=== PATIENT | male | born 1960 | race Caucasian/White ===

== ENCOUNTER 2016-10-31 10:52 | Inpatient (IN) | payer MEDICAID, SELFPAY ==
[2016-10-31] MEDS ORDERED: Sodium Chloride 0.9% 2.5 ML Syringe FLUSH PRN (11:18)
[2016-10-31] MEDS ORDERED: Nitroglycerin 0.4 MG Tab.SL SL PRN (11:18)
[2016-10-31] MEDS ORDERED: Aspirin 81 MG Tab.Chew PO ONE (11:18)
[2016-10-31] MEDS ORDERED: Sodium Chloride 0.9% 10 ML Syringe FLUSH PRN (11:18)
--- NOTE | 2016-10-31 11:44 | CR ---
EXAMINATION: Portable chest radiograph. HISTORY: Shortness of breath. FINDINGS: The trachea is midline. The cardiomediastinal silhouette is within normal limits. Mild bibasilar ate lectasis and/or infiltrate. No pleural effusion or pneumothorax. Osseous structures appear unremarkable. IMPRESSION: 1. Mild bibasilar atelectasis and/or infiltrate.
[2016-10-31] MEDS ORDERED: Levofloxacin/Dextrose 5%-Water 750 MG in Premix Bag 1 BAG IV ONE (13:00)
[2016-10-31] MEDS ORDERED: Bisacodyl 5 MG Tab PO PRN (13:28)
[2016-10-31] MEDS ORDERED: Temazepam 15 MG Cap PO PRN (13:28)
[2016-10-31] MEDS ORDERED: Ondansetron 4 MG Tab.DIS PO PRN (13:28)
--- NOTE | 2016-10-31 13:47 | PCM.HP ---
<Yoandy Godfrey - Last Filed: 10/31/16 13:47> H&P History of Present Illness - General Date of Service: 10/31/16 Admit Problem/Dx: Admission Diagnosis/Problem Admission Diagnosis/Problem Pneumonia Source of Information: Patient, Provider - History of Present Illness Initial Comments - Free Text/Narative: This man presented to the ER today with body aches, cough and fatigue. He was recently started on lozaartin for hypertension. His dose was adjusted because of resultant hypotension. He has chest pain that is central sternal and worse with coughing or moving in certain positions. He is uncertain if he has had a fever. Bilateral Chest Pain Score (Numeric/FACES): 6 - Related Data Allergies/Adverse Reactions: Allergies Allergy/AdvReac Type Severity Reaction Status Date / Time No Known Allergies Allergy Verified 10/31/16 10:56 Home Medications: Home Meds Losartan/Hydrochlorothiazide [Losartan-HCTZ 100-25 MG] 1 each PO DAILY 10/31/16 [History] Past Medical History Cardiovascular History: Reports: Hypertension. Denies: Afib, Bypass, CAD, High cholesterol, AR, PTCA, Pulmonary hypertension, Stents Respiratory History: Denies: COPD Gastrointestinal History: Denies: Cirrhosis Genitourinary History: Denies: Chronic renal insuffiency Musculoskeletal History: Denies: Connective tissue disease, Muscular Dystrophy Neurological History: Denies: Alzheimers disease, CVA, Neuropathy, peripheral, Parkinson's Endocrine/Metabolic History: Denies: [place]'s disease, Diabetes, type I, Diabetes, type II, Hyperthyroidism Hematologic History: Denies: Anticoagulation therapy Immunologic History: Denies: AIDS, HIV, SLE, Solid organ transplant Oncologic (Cancer) History: Reports: None - Past Surgical History Other Head Surgeries/Procedures: he denies a history of any major surgeries. Social & Family History - Family History Family Medical History: Noncontributory - Tobacco Use Smoking Status *Q: Former Smoker Used Tobacco, but Quit: Yes Month Tobacco Last Used: 1 Tobacco Use Comment: states he quit 3 weeks ago - Recreational Drug Use Recreational Drug Use: No H&P Review of Systems - Review of Systems: Review Of Systems: See Below General: Reports: fever (he is uncertain if he had a fever..), malaise, weakness , fatigue HEENT: Denies: ear pain Pulmonary: Reports: Shortness of Breath, Cough. Denies: Wheezing Cardiovascular: Reports: chest pain (central sternal pressure worse with coughin ) Gastrointestinal: Denies: Abdominal pain, Black stool, Hematemesis, Hematochezia , Nausea, Stool incontinence, Vomiting Genitourinary: Denies: dysuria Skin: Denies: cyanosis Neurological: Denies: Trouble Speaking Exam - Exam Exam: See Below - Vital Signs Vital Signs: Last Vital Signs Temp 98.9 F 10/31/16 10:57 Pulse 101 H 10/31/16 10:57 Resp 18 10/31/16 10:57 BP 123/85 10/31/16 10:57 Pulse Ox 95 10/31/16 10:57 Weight: 113.398 kg - Exam General: alert, oriented, cooperative HEENT: Conjunctiva clear, EOMI Neck: supple, trachea midline Lungs: Clear to auscultation, Normal respiratory effort Cardiovascular: regular rate, regular rhythm Abdomen: Soft. No: Distention, Tenderness (Male) Exam: Deferred Extremities: No: edema Neurological: cranial nerves intact, normal speech Neuro Extensive - Mental Status: normal mood/affect - Patient Data Lab Results last 24 hrs: Laboratory Results - last 24 hr 10/31/16 10/31/16 10/31/16 Range/Units 11:28 11:28 11:28 WBC 14.61 H (4.0-11.0) K/uL RBC 4.24 L (4.50-5.90) M/uL Hgb 14.0 (13.0-17.0) g/dL Hct 39.0 (38.0-50.0) % MCV 92.0 (80.0-98.0) fL MCH 33.0 H (27.0-32.0) pg MCHC 35.9 (31.0-37.0) g/dL RDW Std Deviation 40.8 (28.0-62.0) fl RDW Coeff of Venecia 12 (11.0-15.0) % Plt Count 289 (150-400) K/uL MPV 10.10 (7.40-12.00) fL Neut % (Auto) 83.4 H (48.0-80.0) % Lymph % (Auto) 9.0 L (16.0-40.0) % [place] % (Auto) 7.3 (0.0-15.0) % Eos % (Auto) 0.1 (0.0-7.0) % Baso % (Auto) 0.2 (0.0-1.5) % Neut # (Auto) 12.2 H (1.4-5.7) K/uL Lymph # (Auto) 1.3 (0.6-2.4) K/uL [place] # (Auto) 1.1 H (0.0-0.8) K/uL Eos # (Auto) 0.0 (0.0-0.7) K/uL Baso # (Auto) 0.0 (0.0-0.1) K/uL Nucleated RBC % 0.0 /100WBC Nucleated RBCs # 0 K/uL D-Dimer, Quantitative 1.17 H (0.0-0.52) mg/LFEU Sodium 130 L (136-146) mmol/L Potassium 3.1 L (3.5-5.1) mmol/L Chloride 94 L (98-110) mmol/L Carbon Dioxide 22 (21-31) mmol/L BUN 21 (6.0-23.0) mg/dL Creatinine 1.6 H (0.6-1.5) mg/dL Est Cr Clr Drug Dosing 57.93 mL/min Estimated GFR (MDRD) 45.3 ml/min Glucose 295 H (60-110) mg/dL Calcium 9.4 (8.8-10.8) mg/dL Total Bilirubin 2.2 H (0.1-1.5) mg/dL AST 38 (5-40) IU/L ALT 62 H (8-54) IU/L Alkaline Phosphatase 101 (40-150) Troponin I (0.0-0.29) NG/ML B-Natriuretic Peptide (<100) PG/ML Total Protein 8.4 H (6.0-8.0) g/dL Albumin 3.4 L (3.5-5.0) g/dL Globulin 5.0 H (2.0-3.5) g/dL Albumin/Globulin Ratio 0.7 L (1.3-2.8) 10/31/16 10/31/16 Range/Units 11:28 11:28 WBC (4.0-11.0) K/uL RBC (4.50-5.90) M/uL Hgb (13.0-17.0) g/dL Hct (38.0-50.0) % MCV (80.0-98.0) fL MCH (27.0-32.0) pg MCHC (31.0-37.0) g/dL RDW Std Deviation (28.0-62.0) fl RDW Coeff of Venecia (11.0-15.0) % Plt Count (150-400) K/uL MPV (7.40-12.00) fL Neut % (Auto) (48.0-80.0) % Lymph % (Auto) (16.0-40.0) % [place] % (Auto) (0.0-15.0) % Eos % (Auto) (0.0-7.0) % Baso % (Auto) (0.0-1.5) % Neut # (Auto) (1.4-5.7) K/uL Lymph # (Auto) (0.6-2.4) K/uL [place] # (Auto) (0.0-0.8) K/uL Eos # (Auto) (0.0-0.7) K/uL Baso # (Auto) (0.0-0.1) K/uL Nucleated RBC % /100WBC Nucleated RBCs # K/uL D-Dimer, Quantitative (0.0-0.52) mg/LFEU Sodium (136-146) mmol/L Potassium (3.5-5.1) mmol/L Chloride (98-110) mmol/L Carbon Dioxide (21-31) mmol/L BUN (6.0-23.0) mg/dL Creatinine (0.6-1.5) mg/dL Est Cr Clr Drug Dosing mL/min Estimated GFR (MDRD) ml/min Glucose (60-110) mg/dL Calcium (8.8-10.8) mg/dL Total Bilirubin (0.1-1.5) mg/dL AST (5-40) IU/L ALT (8-54) IU/L Alkaline Phosphatase (40-150) Troponin I < 0.10 (0.0-0.29) NG/ML B-Natriuretic Peptide 150 H (<100) PG/ML Total Protein (6.0-8.0) g/dL Albumin (3.5-5.0) g/dL Globulin (2.0-3.5) g/dL Albumin/Globulin Ratio (1.3-2.8) Result Diagrams: 10/31/16 11:28 10/31/16 11:28 Wesley Results last 24 hrs: cxr: as per report; bibasilar infiltrates / pneumonia vs atelectasis. *Q Meaningful Use (ADM) - VTE *Q VTE Criteria *Q: - Stroke *Q Stroke Criteria *Q: - AMI *Q AMI Criteria *Q: - Problem List (1) Pneumonia SNOMED Code(s): 208652334 ICD Code: J18.9 - PNEUMONIA, UNSPECIFIED ORGANISM Status: Acute Current Visit: Yes (2) Hypoxia SNOMED Code(s): 947276072, 595605821 ICD Code: R09.02 - HYPOXEMIA Status: Acute Current Visit: Yes (3) Electrolyte abnormality SNOMED Code(s): 056233673 ICD Code: E87.8 - OTH DISORDERS OF ELECTROLYTE AND FLUID BALANCE, NEC Status: Acute Current Visit: Yes (4) Chest pain SNOMED Code(s): 13073341 ICD Code: R07.9 - CHEST PAIN, UNSPECIFIED Status: Acute Current Visit: Yes (5) Hyperglycemia SNOMED Code(s): 05371856 ICD Code: R73.9 - HYPERGLYCEMIA, UNSPECIFIED Status: Acute Current Visit : Yes (6) Elevated serum creatinine SNOMED Code(s): 154038495 ICD Code: R79.89 - OTHER SPECIFIED ABNORMAL FINDINGS OF BLOOD CHEMISTRY Status: Acute Current Visit: Yes Problem List Initiated/Reviewed/Updated: Yes Orders Last 24hrs: Active Orders 24 hr Category Date Time Status Patient Status [ADT] Stat ADT 10/31/16 13:02 Active Blood Glucose Check, Bedside [RC] QIDACANDBED Care 10/31/16 13:28 Ordered Oxygen Therapy [RC] PRN Care 10/31/16 13:28 Ordered Telemetry Monitoring [Cardiac Monitoring] [RC] . Care 10/31/16 13:05 Active DIRECTED VTE/DVT Education [RC] PER UNIT ROUTINE Care 10/31/16 13:28 Ordered Vital Signs [RC] Q4H Care 10/31/16 13:28 Ordered [place] [employer] Diet [DIET] Diet 10/31/16 Lunch Ordered Lung Vent & Perf Quantative [NM] Stat Exams 10/31/16 12:53 Ordered BASIC METABOLIC PANEL,BMP [CHEM] AM Lab 11/01/16 05:11 Ordered BASIC METABOLIC PANEL,BMP [CHEM] AM Lab 11/02/16 05:11 Ordered BASIC METABOLIC PANEL,BMP [CHEM] AM Lab 11/03/16 05:11 Ordered CBC WITH AUTO DIFF [HEME] AM Lab 11/01/16 05:11 Ordered CBC WITH AUTO DIFF [HEME] AM Lab 11/02/16 05:11 Ordered CBC WITH AUTO DIFF [HEME] AM Lab 11/03/16 05:11 Ordered CULTURE BLOOD [BC] Stat Lab 10/31/16 12:56 Received CULTURE BLOOD [BC] Stat Lab 10/31/16 13:17 Received MAGNESIUM [CHEM] AM Lab 11/01/16 05:11 Ordered MAGNESIUM [CHEM] AM Lab 11/02/16 05:11 Ordered MAGNESIUM [CHEM] AM Lab 11/03/16 05:11 Ordered PHOSPHORUS [CHEM] AM Lab 11/01/16 05:11 Ordered TROPONIN I [CHEM] Q7H Lab 10/31/16 22:00 Ordered TROPONIN I [CHEM] Q7H Lab 11/01/16 05:00 Ordered Acetaminophen [Tylenol] Med 10/31/16 13:28 Ordered 650 mg PO Q4H PRN Bisacodyl [Dulcolax] Med 10/31/16 13:28 Ordered 5 mg PO DAILY PRN Levofloxacin/Dextrose 5%-Water [Levaquin in D5W 750 MG/ Med 10/31/16 13:00 Active 150 ML] 750 mg Premix Bag 1 bag IV ONETIME Levofloxacin/Dextrose 5%-Water [Levaquin in D5W 750 MG/ Med 11/01/16 13:30 Ordered 150 ML] 750 mg Premix Bag 1 bag IV Q24H Losartan/Hydrochlorothiazide [Losartan-HCTZ 100-25 MG] Med 11/01/16 09:00 Ordered 1 each PO DAILY Ondansetron [Zofran ODT] Med 10/31/16 13:28 Ordered 4 mg PO Q4H PRN Sodium Chloride 0.9% [Saline Flush] Med 10/31/16 11:18 Active 10 ml FLUSH ASDIRECTED PRN Sodium Chloride 0.9% [Saline Flush] Med 10/31/16 11:18 Active 2.5 ml FLUSH ASDIRECTED PRN Sodium Chloride 0.9% with KCl 20 mEq @ 125 mL/Hr (1000 Med 10/31/16 13:45 Ordered mL) NS + KCl 20mEq/L [Normal Saline with 20 mEq KCl] 1,000 ml IV ASDIRECTED Temazepam [Restoril] Med 10/31/16 13:28 Ordered 15 mg PO BEDTIME PRN Blood Culture x2 Reflex Set [OM.PC] Stat Oth 10/31/16 12:46 Ordered Peripheral IV Insertion Adult [OM.PC] Stat Oth 10/31/16 11:18 Ordered Resuscitation Status Routine Resus Stat 10/31/16 13:28 Ordered Medication Orders Acetaminophen (Tylenol) 650 mg PO Q4H PRN PRN Reason: Pain (Mild 1-3)/fever Bisacodyl (Dulcolax) 5 mg PO DAILY PRN PRN Reason: Constipation Levofloxacin/Dextrose 750 mg/ (Premix) 150 mls @ 100 mls/hr IV ONETIME ONE Stop: 10/31/16 14:29 Last Admin: 10/31/16 13:24 Dose: 100 mls/hr Levofloxacin/Dextrose 750 mg/ (Premix) 150 mls @ 100 mls/hr IV Q24H RICKY Potassium Chloride/Sodium Chloride (Normal Saline With 20 Meq Kcl) 1,000 mls @ 125 mls/hr IV ASDIRECTED RICKY Non-Formulary Medication (Losartan/Hydrochlorothiazide [Losartan-Hctz 100-25 Mg] ) 1 each PO DAILY RICKY Ondansetron HCl (Zofran Odt) 4 mg PO Q4H PRN PRN Reason: nausea, able to take PO Sodium Chloride (Saline Flush) 10 ml FLUSH ASDIRECTED PRN PRN Reason: Keep Vein Open Sodium Chloride (Saline Flush) 2.5 ml FLUSH ASDIRECTED PRN PRN Reason: Keep Vein Open Temazepam (Restoril) 15 mg PO BEDTIME PRN PRN Reason: Sleep Assessment/Plan Comment:: will check a HgA1C 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 Yoandy Godfrey MD <Lori Myers - Last Filed: 10/31/16 14:09> H&P History of Present Illness - General Admit Problem/Dx: Admission Diagnosis/Problem Admission Diagnosis/Problem Pneumonia Exam - Vital Signs Vital Signs: Last Vital Signs Temp 37.2 C 10/31/16 10:57 Pulse 101 H 10/31/16 10:57 Resp 18 10/31/16 10:57 BP 123/85 10/31/16 10:57 Pulse Ox 95 10/31/16 10:57 - Patient Data Lab Results last 24 hrs: Laboratory Results - last 24 hr 10/31/16 10/31/16 10/31/16 Range/Units 11:28 11:28 11:28 WBC 14.61 H (4.0-11.0) K/uL RBC 4.24 L (4.50-5.90) M/uL Hgb 14.0 (13.0-17.0) g/dL Hct 39.0 (38.0-50.0) % MCV 92.0 (80.0-98.0) fL MCH 33.0 H (27.0-32.0) pg MCHC 35.9 (31.0-37.0) g/dL RDW Std Deviation 40.8 (28.0-62.0) fl RDW Coeff of Venecia 12 (11.0-15.0) % Plt Count 289 (150-400) K/uL MPV 10.10 (7.40-12.00) fL Neut % (Auto) 83.4 H (48.0-80.0) % Lymph % (Auto) 9.0 L (16.0-40.0) % [place] % (Auto) 7.3 (0.0-15.0) % Eos % (Auto) 0.1 (0.0-7.0) % Baso % (Auto) 0.2 (0.0-1.5) % Neut # (Auto) 12.2 H (1.4-5.7) K/uL Lymph # (Auto) 1.3 (0.6-2.4) K/uL [place] # (Auto) 1.1 H (0.0-0.8) K/uL Eos # (Auto) 0.0 (0.0-0.7) K/uL Baso # (Auto) 0.0 (0.0-0.1) K/uL Nucleated RBC % 0.0 /100WBC Nucleated RBCs # 0 K/uL D-Dimer, Quantitative 1.17 H (0.0-0.52) mg/LFEU Sodium 130 L (136-146) mmol/L Potassium 3.1 L (3.5-5.1) mmol/L Chloride 94 L (98-110) mmol/L Carbon Dioxide 22 (21-31) mmol/L BUN 21 (6.0-23.0) mg/dL Creatinine 1.6 H (0.6-1.5) mg/dL Est Cr Clr Drug Dosing 57.93 mL/min Estimated GFR (MDRD) 45.3 ml/min Glucose 295 H (60-110) mg/dL Calcium 9.4 (8.8-10.8) mg/dL Total Bilirubin 2.2 H (0.1-1.5) mg/dL AST 38 (5-40) IU/L ALT 62 H (8-54) IU/L Alkaline Phosphatase 101 (40-150) Troponin I (0.0-0.29) NG/ML B-Natriuretic Peptide (<100) PG/ML Total Protein 8.4 H (6.0-8.0) g/dL Albumin 3.4 L (3.5-5.0) g/dL Globulin 5.0 H (2.0-3.5) g/dL Albumin/Globulin Ratio 0.7 L (1.3-2.8) 10/31/16 10/31/16 Range/Units 11:28 11:28 WBC (4.0-11.0) K/uL RBC (4.50-5.90) M/uL Hgb (13.0-17.0) g/dL Hct (38.0-50.0) % MCV (80.0-98.0) fL MCH (27.0-32.0) pg MCHC (31.0-37.0) g/dL RDW Std Deviation (28.0-62.0) fl RDW Coeff of Venecia (11.0-15.0) % Plt Count (150-400) K/uL MPV (7.40-12.00) fL Neut % (Auto) (48.0-80.0) % Lymph % (Auto) (16.0-40.0) % [place] % (Auto) (0.0-15.0) % Eos % (Auto) (0.0-7.0) % Baso % (Auto) (0.0-1.5) % Neut # (Auto) (1.4-5.7) K/uL Lymph # (Auto) (0.6-2.4) K/uL [place] # (Auto) (0.0-0.8) K/uL Eos # (Auto) (0.0-0.7) K/uL Baso # (Auto) (0.0-0.1) K/uL Nucleated RBC % /100WBC Nucleated RBCs # K/uL D-Dimer, Quantitative (0.0-0.52) mg/LFEU Sodium (136-146) mmol/L Potassium (3.5-5.1) mmol/L Chloride (98-110) mmol/L Carbon Dioxide (21-31) mmol/L BUN (6.0-23.0) mg/dL Creatinine (0.6-1.5) mg/dL Est Cr Clr Drug Dosing mL/min Estimated GFR (MDRD) ml/min Glucose (60-110) mg/dL Calcium (8.8-10.8) mg/dL Total Bilirubin (0.1-1.5) mg/dL AST (5-40) IU/L ALT (8-54) IU/L Alkaline Phosphatase (40-150) Troponin I < 0.10 (0.0-0.29) NG/ML B-Natriuretic Peptide 150 H (<100) PG/ML Total Protein (6.0-8.0) g/dL Albumin (3.5-5.0) g/dL Globulin (2.0-3.5) g/dL Albumin/Globulin Ratio (1.3-2.8) Result Diagrams: 10/31/16 11:28 10/31/16 11:28 *Q Meaningful Use (ADM) - VTE *Q VTE Criteria *Q: - Stroke *Q Stroke Criteria *Q: - AMI *Q AMI Criteria *Q: Orders Last 24hrs: Active Orders 24 hr Category Date Time Status Patient Status [ADT] Stat ADT 10/31/16 13:02 Active Blood Glucose Check, Bedside [RC] QIDACANDBED Care 10/31/16 13:28 Active Oxygen Therapy [RC] PRN Care 10/31/16 13:28 Active Telemetry Monitoring [Cardiac Monitoring] [RC] . Care 10/31/16 13:05 Active DIRECTED VTE/DVT Education [RC] PER UNIT ROUTINE Care 10/31/16 13:28 Active Vital Signs [RC] Q4H Care 10/31/16 13:28 Active [place] [employer] Diet [DIET] Diet 10/31/16 Lunch Active Lung Vent & Perf Quantative [NM] Stat Exams 10/31/16 12:53 Ordered BASIC METABOLIC PANEL,BMP [CHEM] AM Lab 11/01/16 05:11 Ordered BASIC METABOLIC PANEL,BMP [CHEM] AM Lab 11/02/16 05:11 Ordered BASIC METABOLIC PANEL,BMP [CHEM] AM Lab 11/03/16 05:11 Ordered CBC WITH AUTO DIFF [HEME] AM Lab 11/01/16 05:11 Ordered CBC WITH AUTO DIFF [HEME] AM Lab 11/02/16 05:11 Ordered CBC WITH AUTO DIFF [HEME] AM Lab 11/03/16 05:11 Ordered CULTURE BLOOD [BC] Stat Lab 10/31/16 12:56 Received CULTURE BLOOD [BC] Stat Lab 10/31/16 13:17 Received GLYCOSYLATED HEMOGLOBIN,HGBA1C [CHEM] AM Lab 11/01/16 05:11 Ordered MAGNESIUM [CHEM] AM Lab 11/01/16 05:11 Ordered MAGNESIUM [CHEM] AM Lab 11/02/16 05:11 Ordered MAGNESIUM [CHEM] AM Lab 11/03/16 05:11 Ordered PHOSPHORUS [CHEM] AM Lab 11/01/16 05:11 Ordered TROPONIN I [CHEM] Q7H Lab 10/31/16 22:00 Ordered TROPONIN I [CHEM] Q7H Lab 11/01/16 05:00 Ordered Acetaminophen [Tylenol] Med 10/31/16 13:28 Active 650 mg PO Q4H PRN Bisacodyl [Dulcolax] Med 10/31/16 13:28 Active 5 mg PO DAILY PRN Hydrochlorothiazide/Losartan [Hyzaar 50-12.5 MG] Med 11/01/16 09:00 Active 2 tab PO DAILY Insulin Aspart [NovoLOG] Med 10/31/16 14:00 Active See Protocol SUBCUT ACBED Levofloxacin/Dextrose 5%-Water [Levaquin in D5W 750 MG/ Med 10/31/16 13:00 Active 150 ML] 750 mg Premix Bag 1 bag IV ONETIME Levofloxacin/Dextrose 5%-Water [Levaquin in D5W 750 MG/ Med 11/01/16 13:30 Active 150 ML] 750 mg Premix Bag 1 bag IV Q24H NS + KCl 20mEq/L [Normal Saline with 20 mEq KCl] 1,000 Med 10/31/16 13:45 Active ml IV ASDIRECTED Ondansetron [Zofran ODT] Med 10/31/16 13:28 Active 4 mg PO Q4H PRN Sodium Chloride 0.9% [Saline Flush] Med 10/31/16 11:18 Active 10 ml FLUSH ASDIRECTED PRN Sodium Chloride 0.9% [Saline Flush] Med 10/31/16 11:18 Active 2.5 ml FLUSH ASDIRECTED PRN Temazepam [Restoril] Med 10/31/16 13:28 Active 15 mg PO BEDTIME PRN Blood Culture x2 Reflex Set [OM.PC] Stat Oth 10/31/16 12:46 Ordered Peripheral IV Insertion Adult [OM.PC] Stat Oth 10/31/16 11:18 Ordered Resuscitation Status Routine Resus Stat 10/31/16 13:28 Ordered Medication Orders Acetaminophen (Tylenol) 650 mg PO Q4H PRN PRN Reason: Pain (Mild 1-3)/fever Bisacodyl (Dulcolax) 5 mg PO DAILY PRN PRN Reason: Constipation HCTZ/Losartan Potassium (Hyzaar 50-12.5 Mg) 2 tab PO DAILY RICKY Levofloxacin/Dextrose 750 mg/ (Premix) 150 mls @ 100 mls/hr IV ONETIME ONE Stop: 10/31/16 14:29 Last Admin: 10/31/16 13:24 Dose: 100 mls/hr Levofloxacin/Dextrose 750 mg/ (Premix) 150 mls @ 100 mls/hr IV Q24H RICKY Potassium Chloride/Sodium Chloride (Normal Saline With 20 Meq Kcl) 1,000 mls @ 125 mls/hr IV ASDIRECTED RICKY Insulin Aspart (Novolog) 0 unit SUBCUT ACBED RICKY PRN Reason: Protocol Ondansetron HCl (Zofran Odt) 4 mg PO Q4H PRN PRN Reason: nausea, able to take PO Sodium Chloride (Saline Flush) 10 ml FLUSH ASDIRECTED PRN PRN Reason: Keep Vein Open Sodium Chloride (Saline Flush) 2.5 ml FLUSH ASDIRECTED PRN PRN Reason: Keep Vein Open Temazepam (Restoril) 15 mg PO BEDTIME PRN PRN Reason: Sleep
[2016-10-31] MEDS: NS + KCl 20mEq/L 1,000 ML IV SCH (15:56)
--- NOTE | 2016-10-31 16:02 | NM ---
EXAMINATION: Ventilation/perfusion study HISTORY: Shortness of breath COMPARISON: Chest radiograph dated 10/31/2016 TECHNIQUE: Multiplanar images were obtained of the chest following the administration of 3.9 mCi of Tech 99M labeled MAA and 42.8 mCi of Tech 99M labeled DTPA. FINDINGS: There is no ventilation/perfusion mismatch identified. No segmental defect. The lung borde rs appear normal. IMPRESSION: Low probability for a pulmonary embolism.
[2016-10-31] MEDS: Insulin Aspart 100 Units/ML 3 ML Pen SUBCUT SCH ×3 (16:53→20:37)
[2016-11-01] MEDS: NS + KCl 20mEq/L 1,000 ML IV SCH ×2 (00:05→16:39)
[2016-11-01] MEDS: Albuterol/Ipratropium 3.0-0.5 MG/3 ML Neb Soln NEB SCH ×5 (00:06→23:39)
[2016-11-01] MEDS: Piperacillin/Tazobactam 3.375 GM in Sodium Chloride 0.9% 50 ML IV SCH ×4 (02:38→20:01)
[2016-11-01] MEDS ORDERED: Vancomycin 2.5 GM in Sodium Chloride 0.9% 500 ML IV ONE (03:00)
[2016-11-01 05:42] LABS: CHLORIDE,CL 99 mmol/L (98-110); SODIUM,NA 133 mmol/L (136-146)
[2016-11-01] MEDS: Acetaminophen 325 MG Tab PO PRN ×3 (07:20→20:25)
[2016-11-01] MEDS: Insulin Aspart 100 Units/ML 3 ML Pen SUBCUT SCH ×4 (08:34→20:23)
[2016-11-01] MEDS ORDERED: Hydrochlorothiazide/Losartan 12.5-50 mg Tab PO SCH (09:00)
[2016-11-01] MEDS: Hydrochlorothiazide/Losartan 12.5-50 mg Tab PO SCH (09:16)
[2016-11-01] MEDS ORDERED: Magnesium Sulfate/Water 2 GM in Premix Bag 1 BAG IV ONE (11:19)
--- NOTE | 2016-11-01 11:26 | PCM.PN ---
- General Info Date of Service: 11/01/16 - Review of Systems Systems Review Comment:: he is feeling improved. duonebs started last night. - Patient Data Vitals - most recent: Last Vital Signs Temp 101.0 F H 11/01/16 07:00 Pulse 101 H 11/01/16 07:00 Resp 28 H 11/01/16 07:00 BP 133/75 11/01/16 07:00 Pulse Ox 90 L 11/01/16 07:00 Weight - most recent: 129.274 kg I&O - last 24 hours: Intake & Output 10/31/16 11/01/16 11/01/16 22:59 06:59 14:59 Intake Total 2504 300 Output Total 975 Balance 1529 300 Lab Results last 24 hrs: Laboratory Results - last 24 hr 10/31/16 10/31/16 10/31/16 Range/Units 16:01 18:03 20:36 WBC (4.0-11.0) K/uL RBC (4.50-5.90) M/uL Hgb (13.0-17.0) g/dL Hct (38.0-50.0) % MCV (80.0-98.0) fL MCH (27.0-32.0) pg MCHC (31.0-37.0) g/dL RDW Std Deviation (28.0-62.0) fl RDW Coeff of Venecia (11.0-15.0) % Plt Count (150-400) K/uL MPV (7.40-12.00) fL Neut % (Auto) (48.0-80.0) % Lymph % (Auto) (16.0-40.0) % Maries % (Auto) (0.0-15.0) % Eos % (Auto) (0.0-7.0) % Baso % (Auto) (0.0-1.5) % Neut # (Auto) (1.4-5.7) K/uL Lymph # (Auto) (0.6-2.4) K/uL Maries # (Auto) (0.0-0.8) K/uL Eos # (Auto) (0.0-0.7) K/uL Baso # (Auto) (0.0-0.1) K/uL Nucleated RBC % /100WBC Nucleated RBCs # K/uL Sodium (136-146) mmol/L Potassium (3.5-5.1) mmol/L Chloride (98-110) mmol/L Carbon Dioxide (21-31) mmol/L BUN (6.0-23.0) mg/dL Creatinine (0.6-1.5) mg/dL Est Cr Clr Drug Dosing mL/min Estimated GFR (MDRD) ml/min Glucose (60-110) mg/dL POC Glucose 158 H 138 H (60-110) mg/dL Hemoglobin A1c (0.0-6.0) % Calcium (8.8-10.8) mg/dL Phosphorus (2.4-4.7) mg/dL Magnesium (1.5-2.3) mEq/L Troponin I < 0.10 (0.0-0.29) NG/ML 11/01/16 11/01/16 11/01/16 Range/Units 00:00 04:30 04:30 WBC 14.53 H (4.0-11.0) K/uL RBC 3.95 L (4.50-5.90) M/uL Hgb 12.9 L (13.0-17.0) g/dL Hct 37.0 L (38.0-50.0) % MCV 93.7 (80.0-98.0) fL MCH 32.7 H (27.0-32.0) pg MCHC 34.9 (31.0-37.0) g/dL RDW Std Deviation 41.9 (28.0-62.0) fl RDW Coeff of Venecia 12 (11.0-15.0) % Plt Count 235 (150-400) K/uL MPV 10.90 (7.40-12.00) fL Neut % (Auto) 81.2 H (48.0-80.0) % Lymph % (Auto) 11.1 L (16.0-40.0) % Maries % (Auto) 7.4 (0.0-15.0) % Eos % (Auto) 0.1 (0.0-7.0) % Baso % (Auto) 0.2 (0.0-1.5) % Neut # (Auto) 11.8 H (1.4-5.7) K/uL Lymph # (Auto) 1.6 (0.6-2.4) K/uL Maries # (Auto) 1.1 H (0.0-0.8) K/uL Eos # (Auto) 0.0 (0.0-0.7) K/uL Baso # (Auto) 0.0 (0.0-0.1) K/uL Nucleated RBC % 0.0 /100WBC Nucleated RBCs # 0 K/uL Sodium 133 L (136-146) mmol/L Potassium 3.6 (3.5-5.1) mmol/L Chloride 99 (98-110) mmol/L Carbon Dioxide 19 L (21-31) mmol/L BUN 16 (6.0-23.0) mg/dL Creatinine 1.1 (0.6-1.5) mg/dL Est Cr Clr Drug Dosing 84.26 mL/min Estimated GFR (MDRD) > 60.0 ml/min Glucose 138 H (60-110) mg/dL POC Glucose (60-110) mg/dL Hemoglobin A1c (0.0-6.0) % Calcium 8.1 L (8.8-10.8) mg/dL Phosphorus 2.8 (2.4-4.7) mg/dL Magnesium 1.4 L (1.5-2.3) mEq/L Troponin I < 0.10 (0.0-0.29) NG/ML 11/01/16 11/01/16 Range/Units 04:30 06:40 WBC (4.0-11.0) K/uL RBC (4.50-5.90) M/uL Hgb (13.0-17.0) g/dL Hct (38.0-50.0) % MCV (80.0-98.0) fL MCH (27.0-32.0) pg MCHC (31.0-37.0) g/dL RDW Std Deviation (28.0-62.0) fl RDW Coeff of Venceia (11.0-15.0) % Plt Count (150-400) K/uL MPV (7.40-12.00) fL Neut % (Auto) (48.0-80.0) % Lymph % (Auto) (16.0-40.0) % Maries % (Auto) (0.0-15.0) % Eos % (Auto) (0.0-7.0) % Baso % (Auto) (0.0-1.5) % Neut # (Auto) (1.4-5.7) K/uL Lymph # (Auto) (0.6-2.4) K/uL Maries # (Auto) (0.0-0.8) K/uL Eos # (Auto) (0.0-0.7) K/uL Baso # (Auto) (0.0-0.1) K/uL Nucleated RBC % /100WBC Nucleated RBCs # K/uL Sodium (136-146) mmol/L Potassium (3.5-5.1) mmol/L Chloride (98-110) mmol/L Carbon Dioxide (21-31) mmol/L BUN (6.0-23.0) mg/dL Creatinine (0.6-1.5) mg/dL Est Cr Clr Drug Dosing mL/min Estimated GFR (MDRD) ml/min Glucose (60-110) mg/dL POC Glucose 154 H (60-110) mg/dL Hemoglobin A1c 10.0 H (0.0-6.0) % Calcium (8.8-10.8) mg/dL Phosphorus (2.4-4.7) mg/dL Magnesium (1.5-2.3) mEq/L Troponin I (0.0-0.29) NG/ML Med Orders - Current: Current Medications Acetaminophen (Tylenol) 650 mg PO Q4H PRN PRN Reason: Pain (Mild 1-3)/fever Last Admin: 11/01/16 07:20 Dose: 650 mg Albuterol/Ipratropium (Duoneb 3.0-0.5 Mg/3 Ml) 3 ml NEB Q6HRRT [facility] Last Admin: 11/01/16 06:29 Dose: 3 ml Bisacodyl (Dulcolax) 5 mg PO DAILY PRN PRN Reason: Constipation HCTZ/Losartan Potassium (Hyzaar 50-12.5 Mg) 1 tab PO DAILY [facility] Last Admin: 11/01/16 09:16 Dose: 1 tab Levofloxacin/Dextrose 750 mg/ (Premix) 150 mls @ 100 mls/hr IV Q24H [facility] Potassium Chloride/Sodium Chloride (Normal Saline With 20 Meq Kcl) 1,000 mls @ 125 mls/hr IV ASDIRECTED [facility] Last Admin: 11/01/16 00:05 Dose: 125 mls/hr Piperacillin Sod/Tazobactam (Sod 3.375 gm/ Sodium Chloride) 50 mls @ 100 mls/ hr IV Q6H [facility] Last Admin: 11/01/16 09:16 Dose: 100 mls/hr Vancomycin HCl 2 gm/ Sodium (Chloride) 500 mls @ 150 mls/hr IV Q12H [facility] Insulin Aspart (Novolog) 0 unit SUBCUT ACBED RICKY PRN Reason: Protocol Last Admin: 11/01/16 08:34 Dose: 1 units Ondansetron HCl (Zofran Odt) 4 mg PO Q4H PRN PRN Reason: nausea, able to take PO Sodium Chloride (Saline Flush) 10 ml FLUSH ASDIRECTED PRN PRN Reason: Keep Vein Open Sodium Chloride (Saline Flush) 2.5 ml FLUSH ASDIRECTED PRN PRN Reason: Keep Vein Open Temazepam (Restoril) 15 mg PO BEDTIME PRN PRN Reason: Sleep Vancomycin HCl (Pharmacy To Dose - Vancomycin) 1 dose .XX ASDIRECTED [facility] Discontinued Medications Aspirin (Aspirin) 324 mg PO ONETIME ONE Stop: 10/31/16 11:19 Last Admin: 10/31/16 11:35 Dose: 324 mg HCTZ/Losartan Potassium (Hyzaar 50-12.5 Mg) 2 tab PO DAILY [facility] Levofloxacin/Dextrose 750 mg/ (Premix) 150 mls @ 100 mls/hr IV ONETIME ONE Stop: 10/31/16 14:29 Last Admin: 10/31/16 13:24 Dose: 100 mls/hr Vancomycin HCl 2 gm/ Sodium (Chloride) 500 mls @ 150 mls/hr IV Q12H [facility] Vancomycin HCl 1 gm/ Sodium (Chloride) 250 mls @ 166 mls/hr IV Q1H [facility] Stop: 11/01/16 05:59 Last Admin: 11/01/16 07:19 Dose: 166 mls/hr Nitroglycerin (Nitrostat) 0.4 mg SL Q5M PRN PRN Reason: Chest Pain Stop: 10/31/16 11:29 - Exam General: alert, oriented, cooperative HEENT: EOMI Lungs: Clear to auscultation, Normal respiratory effort, Other (better tidal volumes than yesterday pm) Cardiovascular: Regular Rate, Regular Rhythm Abdomen: no tenderness - Problem List & Annotations (1) Pneumonia SNOMED Code(s): 064449840 Code(s): J18.9 - PNEUMONIA, UNSPECIFIED ORGANISM Status: Acute Current Visit: Yes (2) Hypoxia SNOMED Code(s): 057876540, 750697018 Code(s): R09.02 - HYPOXEMIA Status: Acute Current Visit: Yes (3) Electrolyte abnormality SNOMED Code(s): 133080317 Code(s): E87.8 - OTH DISORDERS OF ELECTROLYTE AND FLUID BALANCE, NEC Status : Acute Current Visit: Yes (4) Chest pain SNOMED Code(s): 72097158 Code(s): R07.9 - CHEST PAIN, UNSPECIFIED Status: Acute Current Visit: Yes (5) Hyperglycemia SNOMED Code(s): 39775425 Code(s): R73.9 - HYPERGLYCEMIA, UNSPECIFIED Status: Acute Current Visit: Yes (6) Elevated serum creatinine SNOMED Code(s): 521309650 Code(s): R79.89 - OTHER SPECIFIED ABNORMAL FINDINGS OF BLOOD CHEMISTRY Status: Acute Current Visit: Yes (7) Diabetes mellitus SNOMED Code(s): 53425189 Code(s): E11.9 - TYPE 2 DIABETES MELLITUS WITHOUT COMPLICATIONS Status: Acute Current Visit: Yes (8) Hypomagnesemia SNOMED Code(s): 534815587 Code(s): E83.42 - HYPOMAGNESEMIA Status: Acute Current Visit: Yes - Problem List Review Problem List Initiated/Reviewed/Updated: Yes - My Orders Last 24 Hours: My Active Orders 10/31/16 22:56 RT Aerosol Therapy [RC] ASDIRECTED 11/01/16 00:00 Albuterol/Ipratropium [DuoNeb 3.0-0.5 MG/3 ML] 3 ml NEB Q6HRRT 11/01/16 02:00 Piperacillin/Tazobactam [Piperacil-Tazobact] 3.375 gm Sodium Chloride 0.9% [ Normal Saline] 50 ml IV Q6H Vancomycin Pharmacy to Dose [Pharmacy to Dose - Vancomycin] 1 dose .XX ASDIRECTED 11/01/16 09:00 Hydrochlorothiazide/Losartan [Hyzaar 50-12.5 MG] 1 tab PO DAILY 11/01/16 11:19 Consult to [facility] [Consult to Diabetic Nurse Specialist] [CONS] Routine Magnesium Sulfate/Water [Magnesium Sulfate 2 GM in Water 50 ML] 2 gm Premix Bag 1 bag IV ONETIME 11/01/16 20:00 Vancomycin 2 gm Sodium Chloride 0.9% [Normal Saline] 500 ml IV Q12H 11/02/16 19:30 VANCOMYCIN TROUGH [CHEM] Routine - Plan Plan:: will check a HgA1C [facility] monitor blood sugars K supplementation gentle fluid hydration. Yoandy Godfrey MD 11/01/2016 mg replacement/ recheck in am diabetes teaching continue broad spectrum antibiotics/ antibiotic coverage broadened last pm sliding scale insulin/ may consider metformin at discharge. Yoandy Godfrey MD
[2016-11-01] MEDS: Levofloxacin/Dextrose 5%-Water 750 MG in Premix Bag 1 BAG IV SCH (13:03)
[2016-11-01] MEDS ORDERED: Vancomycin 2 GM in Sodium Chloride 0.9% 500 ML IV SCH (15:00)
[2016-11-01] MEDS: Vancomycin 2 GM in Sodium Chloride 0.9% 500 ML IV SCH (20:02)
[2016-11-02] MEDS: Piperacillin/Tazobactam 3.375 GM in Sodium Chloride 0.9% 50 ML IV SCH ×4 (02:03→20:12)
[2016-11-02] MEDS: Acetaminophen 325 MG Tab PO PRN ×2 (05:40→16:25)
[2016-11-02] MEDS: NS + KCl 20mEq/L 1,000 ML IV SCH ×2 (05:41→20:20)
[2016-11-02 06:12] LABS: CHLORIDE,CL 101 mmol/L (98-110); SODIUM,NA 133 mmol/L (136-146)
[2016-11-02] MEDS: Albuterol/Ipratropium 3.0-0.5 MG/3 ML Neb Soln NEB SCH ×3 (06:37→17:05)
[2016-11-02] MEDS: Insulin Aspart 100 Units/ML 3 ML Pen SUBCUT SCH ×4 (07:06→21:28)
[2016-11-02] MEDS ORDERED: Potassium Chloride 20 MEQ Tab.ER PO ONE (09:00)
[2016-11-02] MEDS: Vancomycin 2 GM in Sodium Chloride 0.9% 500 ML IV SCH ×2 (09:04→21:22)
[2016-11-02] MEDS: Hydrochlorothiazide/Losartan 12.5-50 mg Tab PO SCH (09:07)
--- NOTE | 2016-11-02 11:23 | PCM.PN ---
- General Info Date of Service: 11/02/16 Subjective Update: he is feeling much better. His room air oxygen saturation decreased to 89% when up to the bathroom.. - Patient Data Vitals - most recent: Last Vital Signs Temp 96.5 F 11/02/16 08:00 Pulse 106 H 11/02/16 08:00 Resp 20 11/02/16 08:00 BP 109/65 11/02/16 08:00 Pulse Ox 90 L 11/02/16 08:00 Weight - most recent: 129.274 kg I&O - last 24 hours: Intake & Output 11/01/16 11/02/16 11/02/16 22:59 06:59 14:59 Intake Total 50 3193 50 Output Total 550 Balance 50 2643 50 Lab Results last 24 hrs: Laboratory Results - last 24 hr 11/01/16 11/01/16 11/01/16 Range/Units 11:37 16:33 20:13 WBC (4.0-11.0) K/uL RBC (4.50-5.90) M/uL Hgb (13.0-17.0) g/dL Hct (38.0-50.0) % MCV (80.0-98.0) fL MCH (27.0-32.0) pg MCHC (31.0-37.0) g/dL RDW Std Deviation (28.0-62.0) fl RDW Coeff of Venecia (11.0-15.0) % Plt Count (150-400) K/uL MPV (7.40-12.00) fL Neut % (Auto) (48.0-80.0) % Lymph % (Auto) (16.0-40.0) % [place] % (Auto) (0.0-15.0) % Eos % (Auto) (0.0-7.0) % Baso % (Auto) (0.0-1.5) % Neut # (Auto) (1.4-5.7) K/uL Lymph # (Auto) (0.6-2.4) K/uL [place] # (Auto) (0.0-0.8) K/uL Eos # (Auto) (0.0-0.7) K/uL Baso # (Auto) (0.0-0.1) K/uL Nucleated RBC % /100WBC Nucleated RBCs # K/uL Sodium (136-146) mmol/L Potassium (3.5-5.1) mmol/L Chloride (98-110) mmol/L Carbon Dioxide (21-31) mmol/L BUN (6.0-23.0) mg/dL Creatinine (0.6-1.5) mg/dL Est Cr Clr Drug Dosing mL/min Estimated GFR (MDRD) ml/min Glucose (60-110) mg/dL POC Glucose 180 H 148 H 202 H (60-110) mg/dL Calcium (8.8-10.8) mg/dL Magnesium (1.5-2.3) mEq/L 11/02/16 11/02/16 11/02/16 Range/Units 04:45 04:45 05:47 WBC 8.94 (4.0-11.0) K/uL RBC 3.74 L (4.50-5.90) M/uL Hgb 12.1 L (13.0-17.0) g/dL Hct 35.0 L (38.0-50.0) % MCV 93.6 (80.0-98.0) fL MCH 32.4 H (27.0-32.0) pg MCHC 34.6 (31.0-37.0) g/dL RDW Std Deviation 41.2 (28.0-62.0) fl RDW Coeff of Venecia 12 (11.0-15.0) % Plt Count 212 (150-400) K/uL MPV 10.30 (7.40-12.00) fL Neut % (Auto) 78.0 (48.0-80.0) % Lymph % (Auto) 12.4 L (16.0-40.0) % [place] % (Auto) 8.7 (0.0-15.0) % Eos % (Auto) 0.6 (0.0-7.0) % Baso % (Auto) 0.3 (0.0-1.5) % Neut # (Auto) 7.0 H (1.4-5.7) K/uL Lymph # (Auto) 1.1 (0.6-2.4) K/uL [place] # (Auto) 0.8 (0.0-0.8) K/uL Eos # (Auto) 0.1 (0.0-0.7) K/uL Baso # (Auto) 0.0 (0.0-0.1) K/uL Nucleated RBC % 0.0 /100WBC Nucleated RBCs # 0 K/uL Sodium 133 L (136-146) mmol/L Potassium 3.1 L (3.5-5.1) mmol/L Chloride 101 (98-110) mmol/L Carbon Dioxide 21 (21-31) mmol/L BUN 9 (6.0-23.0) mg/dL Creatinine 1.0 (0.6-1.5) mg/dL Est Cr Clr Drug Dosing 92.69 mL/min Estimated GFR (MDRD) > 60.0 ml/min Glucose 140 H (60-110) mg/dL POC Glucose 157 H (60-110) mg/dL Calcium 8.4 L (8.8-10.8) mg/dL Magnesium 1.2 L (1.5-2.3) mEq/L Med Orders - Current: Current Medications Acetaminophen (Tylenol) 650 mg PO Q4H PRN PRN Reason: Pain (Mild 1-3)/fever Last Admin: 11/02/16 05:40 Dose: 650 mg Albuterol/Ipratropium (Duoneb 3.0-0.5 Mg/3 Ml) 3 ml NEB Q6HRRT [facility] Last Admin: 11/02/16 06:37 Dose: 3 ml Bisacodyl (Dulcolax) 5 mg PO DAILY PRN PRN Reason: Constipation HCTZ/Losartan Potassium (Hyzaar 50-12.5 Mg) 1 tab PO DAILY [facility] Last Admin: 11/02/16 09:07 Dose: 1 tab Levofloxacin/Dextrose 750 mg/ (Premix) 150 mls @ 100 mls/hr IV Q24H [facility] Last Admin: 11/01/16 13:03 Dose: 100 mls/hr Potassium Chloride/Sodium Chloride (Normal Saline With 20 Meq Kcl) 1,000 mls @ 125 mls/hr IV ASDIRECTED [facility] Last Admin: 11/02/16 05:41 Dose: 125 mls/hr Piperacillin Sod/Tazobactam (Sod 3.375 gm/ Sodium Chloride) 50 mls @ 100 mls/ hr IV Q6H [facility] Last Admin: 11/02/16 07:55 Dose: 100 mls/hr Vancomycin HCl 2 gm/ Sodium (Chloride) 500 mls @ 150 mls/hr IV Q12H [facility] Last Admin: 11/02/16 09:04 Dose: 150 mls/hr Insulin Aspart (Novolog) 0 unit SUBCUT ACBED RICKY PRN Reason: Protocol Last Admin: 11/02/16 07:06 Dose: 1 units Metformin HCl (Glucophage) 1,000 mg PO BIDMEALS [facility] Ondansetron HCl (Zofran Odt) 4 mg PO Q4H PRN PRN Reason: nausea, able to take PO Potassium Chloride (Klor-Con M20) 20 meq PO BEDTIME [facility] Sodium Chloride (Saline Flush) 10 ml FLUSH ASDIRECTED PRN PRN Reason: Keep Vein Open Sodium Chloride (Saline Flush) 2.5 ml FLUSH ASDIRECTED PRN PRN Reason: Keep Vein Open Temazepam (Restoril) 15 mg PO BEDTIME PRN PRN Reason: Sleep Vancomycin HCl (Pharmacy To Dose - Vancomycin) 1 dose .XX ASDIRECTED [facility] Discontinued Medications Aspirin (Aspirin) 324 mg PO ONETIME ONE Stop: 10/31/16 11:19 Last Admin: 10/31/16 11:35 Dose: 324 mg HCTZ/Losartan Potassium (Hyzaar 50-12.5 Mg) 2 tab PO DAILY [facility] Levofloxacin/Dextrose 750 mg/ (Premix) 150 mls @ 100 mls/hr IV ONETIME ONE Stop: 10/31/16 14:29 Last Admin: 10/31/16 13:24 Dose: 100 mls/hr Vancomycin HCl 2 gm/ Sodium (Chloride) 500 mls @ 150 mls/hr IV Q12H [facility] Vancomycin HCl 1 gm/ Sodium (Chloride) 250 mls @ 166 mls/hr IV Q1H [facility] Stop: 11/01/16 05:59 Last Admin: 11/01/16 07:19 Dose: 166 mls/hr Magnesium Sulfate 2 gm/ Premix 50 mls @ 50 mls/hr IV ONETIME ONE Stop: 11/01/16 12:18 Last Admin: 11/01/16 11:58 Dose: 50 mls/hr Nitroglycerin (Nitrostat) 0.4 mg SL Q5M PRN PRN Reason: Chest Pain Stop: 10/31/16 11:29 Potassium Chloride (Klor-Con M20) 40 meq PO ONETIME ONE Stop: 11/02/16 09:01 Last Admin: 11/02/16 09:07 Dose: 40 meq - Exam Quality Assessment: supplemental oxygen General: alert, oriented, cooperative Lungs: Clear to auscultation, Normal respiratory effort. No: Rhonchi, Wheezing Cardiovascular: Regular Rate, Regular Rhythm Abdomen: soft, no tenderness Psy/Mental Status: alert. No: agitated - Problem List & Annotations (1) Pneumonia SNOMED Code(s): 424547404 Code(s): J18.9 - PNEUMONIA, UNSPECIFIED ORGANISM Status: Acute Current Visit: Yes (2) Hypoxia SNOMED Code(s): 161242763, 140417428 Code(s): R09.02 - HYPOXEMIA Status: Acute Current Visit: Yes (3) Electrolyte abnormality SNOMED Code(s): 168229443 Code(s): E87.8 - OTH DISORDERS OF ELECTROLYTE AND FLUID BALANCE, NEC Status : Acute Current Visit: Yes (4) Chest pain SNOMED Code(s): 42333838 Code(s): R07.9 - CHEST PAIN, UNSPECIFIED Status: Acute Current Visit: Yes (5) Hyperglycemia SNOMED Code(s): 21967754 Code(s): R73.9 - HYPERGLYCEMIA, UNSPECIFIED Status: Acute Current Visit: Yes (6) Elevated serum creatinine SNOMED Code(s): 197134178 Code(s): R79.89 - OTHER SPECIFIED ABNORMAL FINDINGS OF BLOOD CHEMISTRY Status: Acute Current Visit: Yes (7) Diabetes mellitus SNOMED Code(s): 27162893 Code(s): E11.9 - TYPE 2 DIABETES MELLITUS WITHOUT COMPLICATIONS Status: Acute Current Visit: Yes (8) Hypomagnesemia SNOMED Code(s): 835263259 Code(s): E83.42 - HYPOMAGNESEMIA Status: Acute Current Visit: Yes (9) Staphylococcus aureus bacteremia SNOMED Code(s): 614157643 Code(s): R78.81 - BACTEREMIA Status: Acute Current Visit: Yes - Problem List Review Problem List Initiated/Reviewed/Updated: Yes - My Orders Last 24 Hours: My Active Orders 11/01/16 11:19 Consult to [facility] [Consult to Diabetic Nurse Specialist] [CONS] Routine 05/11/17 20:00 Vancomycin 2 gm Sodium Chloride 0.9% [Normal Saline] 500 ml IV Q12H 11/02/16 10:20 Echo 2D wo Cont [US] Urgent 11/02/16 17:00 metFORMIN [Glucophage] 1,000 mg PO BIDMEALS 11/02/16 19:30 VANCOMYCIN TROUGH [CHEM] Routine 11/02/16 21:00 Potassium Chloride [Klor-Con M20] 20 meq PO BEDTIME - Plan Plan:: will check a HgA1C [facility] classroom monitor blood sugars K supplementation gentle fluid hydration. Yoandy Godfrey MD 11/01/2016 mg replacement/ recheck in am diabetes teaching continue broad spectrum antibiotics/ antibiotic coverage broadened last pm sliding scale insulin/ may consider metformin at discharge. Yoandy Godfrey MD 11/02/2016 will seek infectious disease phone consultation regarding staphylococcus aureus bacteremia. start meformin transthoracic echo ordered. since he also has a bilateral pneumonia will continue the same broad spectrum antibiotics for now. Yoandy Godfrey MD
--- NOTE | 2016-11-02 11:24 | PCM.SN ---
- Free Text/Narrative Note: ordered K supplementation
[2016-11-02] MEDS: Levofloxacin/Dextrose 5%-Water 750 MG in Premix Bag 1 BAG IV SCH (13:30)
[2016-11-02] MEDS: metFORMIN 500 MG Tab PO SCH (17:17)
[2016-11-02] MEDS: Potassium Chloride 20 MEQ Tab.ER PO SCH (20:12)
[2016-11-02] MEDS ORDERED: Magnesium Sulfate/Water 4 GM in Premix Bag 1 BAG IV ONE (21:32)
[2016-11-03] MEDS: Albuterol/Ipratropium 3.0-0.5 MG/3 ML Neb Soln NEB SCH ×4 (00:02→17:54)
[2016-11-03] MEDS: Piperacillin/Tazobactam 3.375 GM in Sodium Chloride 0.9% 50 ML IV SCH ×2 (03:16→07:42)
[2016-11-03 05:46] LABS: CHLORIDE,CL 103 mmol/L (98-110); SODIUM,NA 135 mmol/L (136-146)
[2016-11-03] MEDS: Insulin Aspart 100 Units/ML 3 ML Pen SUBCUT SCH ×4 (07:21→21:06)
[2016-11-03] MEDS: metFORMIN 500 MG Tab PO SCH ×2 (07:41→17:16)
[2016-11-03] MEDS: Vancomycin 2 GM in Sodium Chloride 0.9% 500 ML IV SCH (08:19)
[2016-11-03] MEDS: Hydrochlorothiazide/Losartan 12.5-50 mg Tab PO SCH (08:19)
--- NOTE | 2016-11-03 12:23 | PCM.PN ---
- General Info Date of Service: 11/03/16 Subjective Update: he is feeling much better. He no longer requires supplemental oxygen. - Patient Data Vitals - most recent: Last Vital Signs Temp 208.6 F H 11/03/16 12:00 Pulse 86 11/03/16 12:00 Resp 20 11/03/16 12:00 BP 114/78 11/03/16 12:00 Pulse Ox 92 L 11/03/16 12:00 Weight - most recent: 129.274 kg I&O - last 24 hours: Intake & Output 11/02/16 11/03/16 11/03/16 22:59 06:59 14:59 Intake Total 2649 2676 50 Output Total 300 420 Balance 2349 9196 50 Lab Results last 24 hrs: Laboratory Results - last 24 hr 11/02/16 11/02/16 11/02/16 Range/Units 11:46 16:30 19:37 WBC (4.0-11.0) K/uL RBC (4.50-5.90) M/uL Hgb (13.0-17.0) g/dL Hct (38.0-50.0) % MCV (80.0-98.0) fL MCH (27.0-32.0) pg MCHC (31.0-37.0) g/dL RDW Std Deviation (28.0-62.0) fl RDW Coeff of Venecia (11.0-15.0) % Plt Count (150-400) K/uL MPV (7.40-12.00) fL Neut % (Auto) (48.0-80.0) % Lymph % (Auto) (16.0-40.0) % Harlan % (Auto) (0.0-15.0) % Eos % (Auto) (0.0-7.0) % Baso % (Auto) (0.0-1.5) % Neut # (Auto) (1.4-5.7) K/uL Lymph # (Auto) (0.6-2.4) K/uL Harlan # (Auto) (0.0-0.8) K/uL Eos # (Auto) (0.0-0.7) K/uL Baso # (Auto) (0.0-0.1) K/uL Nucleated RBC % /100WBC Nucleated RBCs # K/uL Sodium (136-146) mmol/L Potassium (3.5-5.1) mmol/L Chloride (98-110) mmol/L Carbon Dioxide (21-31) mmol/L BUN (6.0-23.0) mg/dL Creatinine (0.6-1.5) mg/dL Est Cr Clr Drug Dosing mL/min Estimated GFR (MDRD) ml/min Glucose (60-110) mg/dL POC Glucose 149 H 137 H (60-110) mg/dL Calcium (8.8-10.8) mg/dL Magnesium (1.5-2.3) mEq/L Vancomycin Trough 12.3 (5-15) ug/mL 11/02/16 11/03/16 11/03/16 Range/Units 20:17 05:11 05:11 WBC 7.18 (4.0-11.0) K/uL RBC 3.72 L (4.50-5.90) M/uL Hgb 11.9 L (13.0-17.0) g/dL Hct 34.9 L (38.0-50.0) % MCV 93.8 (80.0-98.0) fL MCH 32.0 (27.0-32.0) pg MCHC 34.1 (31.0-37.0) g/dL RDW Std Deviation 41.6 (28.0-62.0) fl RDW Coeff of Venecia 12 (11.0-15.0) % Plt Count 164 (150-400) K/uL MPV 9.70 (7.40-12.00) fL Neut % (Auto) 72.4 (48.0-80.0) % Lymph % (Auto) 19.4 (16.0-40.0) % Harlan % (Auto) 6.8 (0.0-15.0) % Eos % (Auto) 1.1 (0.0-7.0) % Baso % (Auto) 0.3 (0.0-1.5) % Neut # (Auto) 5.2 (1.4-5.7) K/uL Lymph # (Auto) 1.4 (0.6-2.4) K/uL Harlan # (Auto) 0.5 (0.0-0.8) K/uL Eos # (Auto) 0.1 (0.0-0.7) K/uL Baso # (Auto) 0.0 (0.0-0.1) K/uL Nucleated RBC % 0.0 /100WBC Nucleated RBCs # 0 K/uL Sodium 135 L (136-146) mmol/L Potassium 3.8 (3.5-5.1) mmol/L Chloride 103 (98-110) mmol/L Carbon Dioxide 21 (21-31) mmol/L BUN 6 (6.0-23.0) mg/dL Creatinine 0.8 (0.6-1.5) mg/dL Est Cr Clr Drug Dosing 115.86 mL/min Estimated GFR (MDRD) > 60.0 ml/min Glucose 108 (60-110) mg/dL POC Glucose 130 H (60-110) mg/dL Calcium 8.4 L (8.8-10.8) mg/dL Magnesium 1.7 (1.5-2.3) mEq/L Vancomycin Trough (5-15) ug/mL 11/03/16 11/03/16 Range/Units 06:07 11:32 WBC (4.0-11.0) K/uL RBC (4.50-5.90) M/uL Hgb (13.0-17.0) g/dL Hct (38.0-50.0) % MCV (80.0-98.0) fL MCH (27.0-32.0) pg MCHC (31.0-37.0) g/dL RDW Std Deviation (28.0-62.0) fl RDW Coeff of Venecia (11.0-15.0) % Plt Count (150-400) K/uL MPV (7.40-12.00) fL Neut % (Auto) (48.0-80.0) % Lymph % (Auto) (16.0-40.0) % Harlan % (Auto) (0.0-15.0) % Eos % (Auto) (0.0-7.0) % Baso % (Auto) (0.0-1.5) % Neut # (Auto) (1.4-5.7) K/uL Lymph # (Auto) (0.6-2.4) K/uL Harlan # (Auto) (0.0-0.8) K/uL Eos # (Auto) (0.0-0.7) K/uL Baso # (Auto) (0.0-0.1) K/uL Nucleated RBC % /100WBC Nucleated RBCs # K/uL Sodium (136-146) mmol/L Potassium (3.5-5.1) mmol/L Chloride (98-110) mmol/L Carbon Dioxide (21-31) mmol/L BUN (6.0-23.0) mg/dL Creatinine (0.6-1.5) mg/dL Est Cr Clr Drug Dosing mL/min Estimated GFR (MDRD) ml/min Glucose (60-110) mg/dL POC Glucose 98 122 H (60-110) mg/dL Calcium (8.8-10.8) mg/dL Magnesium (1.5-2.3) mEq/L Vancomycin Trough (5-15) ug/mL Med Orders - Current: Current Medications Acetaminophen (Tylenol) 650 mg PO Q4H PRN PRN Reason: Pain (Mild 1-3)/fever Last Admin: 11/02/16 16:25 Dose: 650 mg Albuterol/Ipratropium (Duoneb 3.0-0.5 Mg/3 Ml) 3 ml NEB Q6HRRT [facility] Last Admin: 11/03/16 11:47 Dose: 3 ml Bisacodyl (Dulcolax) 5 mg PO DAILY PRN PRN Reason: Constipation HCTZ/Losartan Potassium (Hyzaar 50-12.5 Mg) 1 tab PO DAILY [facility] Last Admin: 11/03/16 08:19 Dose: 1 tab Potassium Chloride/Sodium Chloride (Normal Saline With 20 Meq Kcl) 1,000 mls @ 125 mls/hr IV ASDIRECTED [facility] Last Admin: 11/02/16 20:20 Dose: 125 mls/hr Cefazolin Sodium/Dextrose 2 gm (/ Premix) 50 mls @ 100 mls/hr IV Q8H [facility] Insulin Aspart (Novolog) 0 unit SUBCUT ACBED [facility] PRN Reason: Protocol Last Admin: 11/03/16 11:35 Dose: Not Given Metformin HCl (Glucophage) 1,000 mg PO BIDMEALS [facility] Last Admin: 11/03/16 07:41 Dose: 1,000 mg Ondansetron HCl (Zofran Odt) 4 mg PO Q4H PRN PRN Reason: nausea, able to take PO Potassium Chloride (Klor-Con M20) 20 meq PO BEDTIME [facility] Last Admin: 11/02/16 20:12 Dose: 20 meq Sodium Chloride (Saline Flush) 10 ml FLUSH ASDIRECTED PRN PRN Reason: Keep Vein Open Sodium Chloride (Saline Flush) 2.5 ml FLUSH ASDIRECTED PRN PRN Reason: Keep Vein Open Temazepam (Restoril) 15 mg PO BEDTIME PRN PRN Reason: Sleep Discontinued Medications Aspirin (Aspirin) 324 mg PO ONETIME ONE Stop: 10/31/16 11:19 Last Admin: 10/31/16 11:35 Dose: 324 mg HCTZ/Losartan Potassium (Hyzaar 50-12.5 Mg) 2 tab PO DAILY [facility] Levofloxacin/Dextrose 750 mg/ (Premix) 150 mls @ 100 mls/hr IV ONETIME ONE Stop: 10/31/16 14:29 Last Admin: 10/31/16 13:24 Dose: 100 mls/hr Levofloxacin/Dextrose 750 mg/ (Premix) 150 mls @ 100 mls/hr IV Q24H [facility] Last Admin: 11/02/16 13:30 Dose: 100 mls/hr Piperacillin Sod/Tazobactam (Sod 3.375 gm/ Sodium Chloride) 50 mls @ 100 mls/ hr IV Q6H [facility] Last Admin: 11/03/16 07:42 Dose: 100 mls/hr Vancomycin HCl 2 gm/ Sodium (Chloride) 500 mls @ 150 mls/hr IV Q12H [facility] Vancomycin HCl 1 gm/ Sodium (Chloride) 250 mls @ 166 mls/hr IV Q1H [facility] Stop: 11/01/16 05:59 Last Admin: 11/01/16 07:19 Dose: 166 mls/hr Vancomycin HCl 2 gm/ Sodium (Chloride) 500 mls @ 150 mls/hr IV Q12H [facility] Last Admin: 11/03/16 08:19 Dose: 150 mls/hr Magnesium Sulfate 2 gm/ Premix 50 mls @ 50 mls/hr IV ONETIME ONE Stop: 11/01/16 12:18 Last Admin: 11/01/16 11:58 Dose: 50 mls/hr Magnesium Sulfate 4 gm/ Premix 100 mls @ 50 mls/hr IV ONETIME ONE Stop: 11/02/16 23:31 Last Admin: 11/03/16 00:47 Dose: 50 mls/hr Nitroglycerin (Nitrostat) 0.4 mg SL Q5M PRN PRN Reason: Chest Pain Stop: 10/31/16 11:29 Potassium Chloride (Klor-Con M20) 40 meq PO ONETIME ONE Stop: 11/02/16 09:01 Last Admin: 11/02/16 09:07 Dose: 40 meq Vancomycin HCl (Pharmacy To Dose - Vancomycin) 1 dose .XX ASDIRECTED [facility] - Exam Quality Assessment: supplemental oxygen General: alert, oriented Neck: supple, trachea midline Lungs: Clear to auscultation, Normal respiratory effort Cardiovascular: Regular Rate, Regular Rhythm, No Murmurs - Problem List & Annotations (1) Pneumonia SNOMED Code(s): 363134668 Code(s): J18.9 - PNEUMONIA, UNSPECIFIED ORGANISM Status: Acute Current Visit: Yes (2) Hypoxia SNOMED Code(s): 389298396, 370774873 Code(s): R09.02 - HYPOXEMIA Status: Acute Current Visit: Yes (3) Electrolyte abnormality SNOMED Code(s): 064146418 Code(s): E87.8 - OTH DISORDERS OF ELECTROLYTE AND FLUID BALANCE, NEC Status : Acute Current Visit: Yes (4) Chest pain SNOMED Code(s): 07574335 Code(s): R07.9 - CHEST PAIN, UNSPECIFIED Status: Acute Current Visit: Yes (5) Hyperglycemia SNOMED Code(s): 74573503 Code(s): R73.9 - HYPERGLYCEMIA, UNSPECIFIED Status: Acute Current Visit: Yes (6) Elevated serum creatinine SNOMED Code(s): 826131368 Code(s): R79.89 - OTHER SPECIFIED ABNORMAL FINDINGS OF BLOOD CHEMISTRY Status: Acute Current Visit: Yes (7) Diabetes mellitus SNOMED Code(s): 73706613 Code(s): E11.9 - TYPE 2 DIABETES MELLITUS WITHOUT COMPLICATIONS Status: Acute Current Visit: Yes (8) Hypomagnesemia SNOMED Code(s): 518992983 Code(s): E83.42 - HYPOMAGNESEMIA Status: Acute Current Visit: Yes (9) Staphylococcus aureus bacteremia SNOMED Code(s): 166081224 Code(s): R78.81 - BACTEREMIA Status: Acute Current Visit: Yes - Problem List Review Problem List Initiated/Reviewed/Updated: Yes - My Orders Last 24 Hours: My Active Orders 11/02/16 11:23 Blood Culture x2 Reflex Set [OM.PC] Stat 11/02/16 12:10 CULTURE BLOOD [BC] Stat 11/02/16 12:18 CULTURE BLOOD [BC] Stat 11/02/16 17:00 metFORMIN [Glucophage] 1,000 mg PO BIDMEALS 11/02/16 21:00 Potassium Chloride [Klor-Con M20] 20 meq PO BEDTIME 11/03/16 12:30 ceFAZolin [Ancef] 2 gm Premix Bag 1 bag IV Q8H 11/04/16 05:11 LIPID PANEL [CHEM] AM - Plan Plan:: will 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 Yoandy Godfrey MD 11/01/2016 mg replacement/ recheck in am diabetes teaching continue broad spectrum antibiotics/ antibiotic coverage broadened last pm sliding scale insulin/ may consider metformin at discharge. Yoandy Godfrey MD 11/02/2016 will seek infectious disease phone consultation regarding staphylococcus aureus bacteremia. start meformin transthoracic echo ordered. since he also has a bilateral pneumonia will continue the same broad spectrum antibiotics for now. Yoandy Godfrey MD 11/03/2016 Will change to cefazolin 2 g IV q 8 hours. TT echo results pending. Slightly febrile last night. Repeat blood cultures pending. continue with in hospital treatment. He will need intravenous cefazolin for at least 14 days after repeat blood culture negative. Thus earliest possible discharge would be Saturday or Saturday. Yoandy Godfrey MD
[2016-11-03] MEDS: ceFAZolin 2 GM in Premix Bag 1 BAG IV SCH ×2 (12:38→20:13)
[2016-11-03] MEDS: Acetaminophen 325 MG Tab PO PRN (13:37)
[2016-11-03] MEDS: NS + KCl 20mEq/L 1,000 ML IV SCH ×2 (14:53→23:32)
[2016-11-03] MEDS: Potassium Chloride 20 MEQ Tab.ER PO SCH (20:13)
[2016-11-04] MEDS: Albuterol/Ipratropium 3.0-0.5 MG/3 ML Neb Soln NEB SCH ×5 (01:00→23:56)
[2016-11-04] MEDS: ceFAZolin 2 GM in Premix Bag 1 BAG IV SCH ×3 (04:59→21:15)
[2016-11-04] MEDS: Insulin Aspart 100 Units/ML 3 ML Pen SUBCUT SCH ×4 (07:30→21:20)
[2016-11-04] MEDS: metFORMIN 500 MG Tab PO SCH ×2 (07:57→17:09)
[2016-11-04] MEDS: NS + KCl 20mEq/L 1,000 ML IV SCH (08:04)
[2016-11-04] MEDS: Hydrochlorothiazide/Losartan 12.5-50 mg Tab PO SCH (08:05)
--- NOTE | 2016-11-04 12:44 | PCM.PN ---
- General Info Date of Service: 11/04/16 - Review of Systems Systems Review Comment:: He is feeling better. - Patient Data Vitals - most recent: Last Vital Signs Temp 98.1 F 11/04/16 12:00 Pulse 81 11/04/16 12:00 Resp 20 11/04/16 12:00 BP 162/98 H 11/04/16 12:00 Pulse Ox 92 L 11/04/16 12:00 Weight - most recent: 129.274 kg I&O - last 24 hours: Intake & Output 11/03/16 11/04/16 11/04/16 22:59 06:59 14:59 Intake Total 1964 1823 1000 Output Total 1450 1050 Balance 110 643 4223 Lab Results last 24 hrs: Laboratory Results - last 24 hr 11/03/16 11/03/16 11/04/16 Range/Units 16:39 21:01 05:03 POC Glucose 109 112 H (60-110) mg/dL Triglycerides 123 (10-190) mg/dL Cholesterol 97 L (131-240) mg/dL LDL Cholesterol, Calc 60 (60-180) mg/dL VLDL Cholesterol 25 (5-55) mg/dL HDL Cholesterol 12 L (40-80) mg/dL Cholesterol/HDL Ratio 8.1 H (3.3-6.0) 11/04/16 11/04/16 Range/Units 07:11 11:20 POC Glucose 96 90 (60-110) mg/dL Triglycerides (10-190) mg/dL Cholesterol (131-240) mg/dL LDL Cholesterol, Calc (60-180) mg/dL VLDL Cholesterol (5-55) mg/dL HDL Cholesterol (40-80) mg/dL Cholesterol/HDL Ratio (3.3-6.0) Wesley Results last 24 hrs: Microbiology 11/02/16 12:18 Aerobic Blood Culture - Preliminary Blood - Venous - Lab Draw NO GROWTH AFTER 2 DAYS Anaerobic Blood Culture - Preliminary NO GROWTH AFTER 2 DAYS 11/02/16 12:10 Aerobic Blood Culture - Preliminary Blood - Venous Anaerobic Blood Culture - Preliminary NO GROWTH AFTER 2 DAYS Med Orders - Current: Current Medications Acetaminophen (Tylenol) 650 mg PO Q4H PRN PRN Reason: Pain (Mild 1-3)/fever Last Admin: 11/03/16 13:37 Dose: 650 mg Albuterol/Ipratropium (Duoneb 3.0-0.5 Mg/3 Ml) 3 ml NEB Q6HRRT [facility] Last Admin: 11/04/16 11:43 Dose: 3 ml Bisacodyl (Dulcolax) 5 mg PO DAILY PRN PRN Reason: Constipation HCTZ/Losartan Potassium (Hyzaar 50-12.5 Mg) 1 tab PO DAILY [facility] Last Admin: 11/04/16 08:05 Dose: 1 tab Potassium Chloride/Sodium Chloride (Normal Saline With 20 Meq Kcl) 1,000 mls @ 125 mls/hr IV ASDIRECTED [facility] Last Admin: 11/04/16 08:04 Dose: 125 mls/hr Cefazolin Sodium/Dextrose 2 gm (/ Premix) 50 mls @ 100 mls/hr IV Q8H [facility] Last Admin: 11/04/16 11:54 Dose: 100 mls/hr Insulin Aspart (Novolog) 0 unit SUBCUT ACBED [facility] PRN Reason: Protocol Last Admin: 11/04/16 11:23 Dose: Not Given Metformin HCl (Glucophage) 1,000 mg PO BIDMEALS [facility] Last Admin: 11/04/16 07:57 Dose: 1,000 mg Ondansetron HCl (Zofran Odt) 4 mg PO Q4H PRN PRN Reason: nausea, able to take PO Potassium Chloride (Klor-Con M20) 20 meq PO BEDTIME [facility] Last Admin: 11/03/16 20:13 Dose: 20 meq Sodium Chloride (Saline Flush) 10 ml FLUSH ASDIRECTED PRN PRN Reason: Keep Vein Open Sodium Chloride (Saline Flush) 2.5 ml FLUSH ASDIRECTED PRN PRN Reason: Keep Vein Open Temazepam (Restoril) 15 mg PO BEDTIME PRN PRN Reason: Sleep Discontinued Medications Aspirin (Aspirin) 324 mg PO ONETIME ONE Stop: 10/31/16 11:19 Last Admin: 10/31/16 11:35 Dose: 324 mg HCTZ/Losartan Potassium (Hyzaar 50-12.5 Mg) 2 tab PO DAILY [facility] Levofloxacin/Dextrose 750 mg/ (Premix) 150 mls @ 100 mls/hr IV ONETIME ONE Stop: 10/31/16 14:29 Last Admin: 10/31/16 13:24 Dose: 100 mls/hr Levofloxacin/Dextrose 750 mg/ (Premix) 150 mls @ 100 mls/hr IV Q24H [facility] Last Admin: 11/02/16 13:30 Dose: 100 mls/hr Piperacillin Sod/Tazobactam (Sod 3.375 gm/ Sodium Chloride) 50 mls @ 100 mls/ hr IV Q6H [facility] Last Admin: 11/03/16 07:42 Dose: 100 mls/hr Vancomycin HCl 2 gm/ Sodium (Chloride) 500 mls @ 150 mls/hr IV Q12H [facility] Vancomycin HCl 1 gm/ Sodium (Chloride) 250 mls @ 166 mls/hr IV Q1H [facility] Stop: 11/01/16 05:59 Last Admin: 11/01/16 07:19 Dose: 166 mls/hr Vancomycin HCl 2 gm/ Sodium (Chloride) 500 mls @ 150 mls/hr IV Q12H [facility] Last Admin: 11/03/16 08:19 Dose: 150 mls/hr Magnesium Sulfate 2 gm/ Premix 50 mls @ 50 mls/hr IV ONETIME ONE Stop: 11/01/16 12:18 Last Admin: 11/01/16 11:58 Dose: 50 mls/hr Magnesium Sulfate 4 gm/ Premix 100 mls @ 50 mls/hr IV ONETIME ONE Stop: 11/02/16 23:31 Last Admin: 11/03/16 00:47 Dose: 50 mls/hr Nitroglycerin (Nitrostat) 0.4 mg SL Q5M PRN PRN Reason: Chest Pain Stop: 10/31/16 11:29 Potassium Chloride (Klor-Con M20) 40 meq PO ONETIME ONE Stop: 11/02/16 09:01 Last Admin: 11/02/16 09:07 Dose: 40 meq Vancomycin HCl (Pharmacy To Dose - Vancomycin) 1 dose .XX ASDIRECTED [facility] - Exam General: alert, oriented Neck: trachea midline Lungs: Clear to auscultation, Normal respiratory effort Cardiovascular: Regular Rate, Regular Rhythm, No Murmurs - Problem List & Annotations (1) Pneumonia SNOMED Code(s): 392849521 Code(s): J18.9 - PNEUMONIA, UNSPECIFIED ORGANISM Status: Acute Current Visit: Yes (2) Hypoxia SNOMED Code(s): 693167875, 405639949 Code(s): R09.02 - HYPOXEMIA Status: Acute Current Visit: Yes (3) Electrolyte abnormality SNOMED Code(s): 617430414 Code(s): E87.8 - OTH DISORDERS OF ELECTROLYTE AND FLUID BALANCE, NEC Status : Acute Current Visit: Yes (4) Chest pain SNOMED Code(s): 16465712 Code(s): R07.9 - CHEST PAIN, UNSPECIFIED Status: Acute Current Visit: Yes (5) Hyperglycemia SNOMED Code(s): 50845348 Code(s): R73.9 - HYPERGLYCEMIA, UNSPECIFIED Status: Acute Current Visit: Yes (6) Elevated serum creatinine SNOMED Code(s): 898463928 Code(s): R79.89 - OTHER SPECIFIED ABNORMAL FINDINGS OF BLOOD CHEMISTRY Status: Acute Current Visit: Yes (7) Diabetes mellitus SNOMED Code(s): 61278745 Code(s): E11.9 - TYPE 2 DIABETES MELLITUS WITHOUT COMPLICATIONS Status: Acute Current Visit: Yes (8) Hypomagnesemia SNOMED Code(s): 214926840 Code(s): E83.42 - HYPOMAGNESEMIA Status: Acute Current Visit: Yes (9) Staphylococcus aureus bacteremia SNOMED Code(s): 742827880 Code(s): R78.81 - BACTEREMIA Status: Acute Current Visit: Yes - Problem List Review Problem List Initiated/Reviewed/Updated: Yes - My Orders Last 24 Hours: My Active Orders 11/03/16 12:30 ceFAZolin [Ancef] 2 gm Premix Bag 1 bag IV Q8H 11/04/16 11:26 Blood Culture x2 Reflex Set [OM.PC] Stat 11/04/16 11:39 CULTURE BLOOD [BC] Stat 11/04/16 12:10 CULTURE BLOOD [BC] Stat - Plan Plan:: will check a 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 Yoandy Godfrey MD 11/01/2016 mg replacement/ recheck in am diabetes teaching continue broad spectrum antibiotics/ antibiotic coverage broadened last pm sliding scale insulin/ may consider metformin at discharge. Yoandy Godfrey MD 11/02/2016 will seek infectious disease phone consultation regarding staphylococcus aureus bacteremia. start meformin transthoracic echo ordered. since he also has a bilateral pneumonia will continue the same broad spectrum antibiotics for now. Yoandy Godfrey MD 11/03/2016 Will change to cefazolin 2 g IV q 8 hours. TT echo results pending. Slightly febrile last night. Repeat blood cultures pending. continue with in hospital treatment. He will need intravenous cefazolin for at least 14 days after repeat blood culture negative. Thus earliest possible discharge would be Saturday or Saturday. Yoandy Godfrey MD 11/04/2016 blood culture from two days ago growing gram positive cocci in clusters. continue cefazolin echo results pending plan repeat telephone consultation with infectious disease ( Dr Berrios ) tomorrow. I advised that he might need ENMA Yoandy Godfrey MD
[2016-11-04] MEDS: Potassium Chloride 20 MEQ Tab.ER PO SCH (21:15)
[2016-11-05] MEDS: ceFAZolin 2 GM in Premix Bag 1 BAG IV SCH ×3 (04:42→20:54)
[2016-11-05] MEDS: Albuterol/Ipratropium 3.0-0.5 MG/3 ML Neb Soln NEB SCH ×4 (06:50→23:45)
[2016-11-05] MEDS: Insulin Aspart 100 Units/ML 3 ML Pen SUBCUT SCH ×4 (06:51→21:29)
[2016-11-05] MEDS: Hydrochlorothiazide/Losartan 12.5-50 mg Tab PO SCH (07:59)
[2016-11-05] MEDS: metFORMIN 500 MG Tab PO SCH ×2 (07:59→17:23)
[2016-11-05 09:23] LABS: CHLORIDE,CL 106 mmol/L (98-110); SODIUM,NA 138 mmol/L (136-146)
--- NOTE | 2016-11-05 11:35 | PCM.PN ---
- General Info Date of Service: 11/05/16 Admission Dx/Problem (Free Text): Admission Diagnosis/Problem Admission Diagnosis/Problem Pneumonia Subjective Update: Feeling better today, eager for discharge home. Denies chest pain or SOB. Has a dry cough. Has been up ambulating. Functional Status: Reports: pain controlled, tolerating diet, ambulating, urinating - Review of Systems General: Reports: No Symptoms. Denies: Fever, Malaise HEENT: Reports: no symptoms. Denies: sinus congestion, sore throat Pulmonary: Reports: cough. Denies: shortness of breath, sputum, hemoptysis Cardiovascular: Reports: No Symptoms. Denies: Chest Pain, Palpitations, Edema Gastrointestinal: Reports: No symptoms. Denies: Abdominal pain, Nausea, Vomiting Genitourinary: Reports: no symptoms Musculoskeletal: Reports: no symptoms Skin: Reports: no symptoms Neurological: Reports: No Symptoms Psychiatric: Reports: no symptoms - Patient Data Vitals - most recent: Last Vital Signs Temp 97.7 F 11/05/16 08:00 Pulse 99 11/05/16 08:00 Resp 16 11/05/16 08:00 BP 141/92 H 11/05/16 08:00 Pulse Ox 91 L 11/05/16 08:00 Weight - most recent: 129.274 kg I&O - last 24 hours: Intake & Output 11/04/16 11/05/16 11/05/16 22:59 06:59 14:59 Intake Total 2364 800 Output Total 1700 1225 Balance 664 -425 Lab Results last 24 hrs: Laboratory Results - last 24 hr 11/04/16 11/04/16 11/05/16 Range/Units 16:50 21:13 06:21 WBC (4.0-11.0) K/uL RBC (4.50-5.90) M/uL Hgb (13.0-17.0) g/dL Hct (38.0-50.0) % MCV (80.0-98.0) fL MCH (27.0-32.0) pg MCHC (31.0-37.0) g/dL RDW Std Deviation (28.0-62.0) fl RDW Coeff of Venecia (11.0-15.0) % Plt Count (150-400) K/uL MPV (7.40-12.00) fL Neut % (Auto) (48.0-80.0) % Lymph % (Auto) (16.0-40.0) % Kidder % (Auto) (0.0-15.0) % Eos % (Auto) (0.0-7.0) % Baso % (Auto) (0.0-1.5) % Neut # (Auto) (1.4-5.7) K/uL Lymph # (Auto) (0.6-2.4) K/uL Kidder # (Auto) (0.0-0.8) K/uL Eos # (Auto) (0.0-0.7) K/uL Baso # (Auto) (0.0-0.1) K/uL Nucleated RBC % /100WBC Nucleated RBCs # K/uL Sodium (136-146) mmol/L Potassium (3.5-5.1) mmol/L Chloride (98-110) mmol/L Carbon Dioxide (21-31) mmol/L BUN (6.0-23.0) mg/dL Creatinine (0.6-1.5) mg/dL Est Cr Clr Drug Dosing mL/min Estimated GFR (MDRD) ml/min Glucose (60-110) mg/dL POC Glucose 107 98 89 (60-110) mg/dL Calcium (8.8-10.8) mg/dL 11/05/16 11/05/16 Range/Units 08:46 08:46 WBC 5.81 (4.0-11.0) K/uL RBC 3.86 L (4.50-5.90) M/uL Hgb 12.3 L (13.0-17.0) g/dL Hct 36.3 L (38.0-50.0) % MCV 94.0 (80.0-98.0) fL MCH 31.9 (27.0-32.0) pg MCHC 33.9 (31.0-37.0) g/dL RDW Std Deviation 41.6 (28.0-62.0) fl RDW Coeff of Venecia 12 (11.0-15.0) % Plt Count 192 (150-400) K/uL MPV 9.90 (7.40-12.00) fL Neut % (Auto) 69.8 (48.0-80.0) % Lymph % (Auto) 23.1 (16.0-40.0) % Kidder % (Auto) 5.3 (0.0-15.0) % Eos % (Auto) 1.5 (0.0-7.0) % Baso % (Auto) 0.3 (0.0-1.5) % Neut # (Auto) 4.1 (1.4-5.7) K/uL Lymph # (Auto) 1.3 (0.6-2.4) K/uL Kidder # (Auto) 0.3 (0.0-0.8) K/uL Eos # (Auto) 0.1 (0.0-0.7) K/uL Baso # (Auto) 0.0 (0.0-0.1) K/uL Nucleated RBC % 0.0 /100WBC Nucleated RBCs # 0 K/uL Sodium 138 (136-146) mmol/L Potassium 3.8 (3.5-5.1) mmol/L Chloride 106 (98-110) mmol/L Carbon Dioxide 20 L (21-31) mmol/L BUN 6 (6.0-23.0) mg/dL Creatinine 0.8 (0.6-1.5) mg/dL Est Cr Clr Drug Dosing 115.86 mL/min Estimated GFR (MDRD) > 60.0 ml/min Glucose 153 H (60-110) mg/dL POC Glucose (60-110) mg/dL Calcium 9.3 (8.8-10.8) mg/dL Wesley Results last 24 hrs: Microbiology 11/02/16 12:10 Aerobic Blood Culture - Preliminary Blood - Venous Anaerobic Blood Culture - Preliminary NO GROWTH AFTER 2 DAYS 11/02/16 12:18 Aerobic Blood Culture - Preliminary Blood - Venous - Lab Draw NO GROWTH AFTER 2 DAYS Anaerobic Blood Culture - Preliminary NO GROWTH AFTER 2 DAYS Med Orders - Current: Current Medications Acetaminophen (Tylenol) 650 mg PO Q4H PRN PRN Reason: Pain (Mild 1-3)/fever Last Admin: 11/03/16 13:37 Dose: 650 mg Albuterol/Ipratropium (Duoneb 3.0-0.5 Mg/3 Ml) 3 ml NEB Q6HRRT [facility] Last Admin: 11/05/16 06:50 Dose: 3 ml Bisacodyl (Dulcolax) 5 mg PO DAILY PRN PRN Reason: Constipation HCTZ/Losartan Potassium (Hyzaar 50-12.5 Mg) 1 tab PO DAILY [facility] Last Admin: 11/05/16 07:59 Dose: 1 tab Cefazolin Sodium/Dextrose 2 gm (/ Premix) 50 mls @ 100 mls/hr IV Q8H [facility] Last Admin: 11/05/16 04:42 Dose: 100 mls/hr Insulin Aspart (Novolog) 0 unit SUBCUT ACBED [facility] PRN Reason: Protocol Last Admin: 11/05/16 06:51 Dose: Not Given Metformin HCl (Glucophage) 1,000 mg PO BIDMEALS [facility] Last Admin: 11/05/16 07:59 Dose: 1,000 mg Ondansetron HCl (Zofran Odt) 4 mg PO Q4H PRN PRN Reason: nausea, able to take PO Potassium Chloride (Klor-Con M20) 20 meq PO BEDTIME [facility] Last Admin: 11/04/16 21:15 Dose: 20 meq Sodium Chloride (Saline Flush) 10 ml FLUSH ASDIRECTED PRN PRN Reason: Keep Vein Open Sodium Chloride (Saline Flush) 2.5 ml FLUSH ASDIRECTED PRN PRN Reason: Keep Vein Open Temazepam (Restoril) 15 mg PO BEDTIME PRN PRN Reason: Sleep Discontinued Medications Aspirin (Aspirin) 324 mg PO ONETIME ONE Stop: 10/31/16 11:19 Last Admin: 10/31/16 11:35 Dose: 324 mg HCTZ/Losartan Potassium (Hyzaar 50-12.5 Mg) 2 tab PO DAILY [facility] Levofloxacin/Dextrose 750 mg/ (Premix) 150 mls @ 100 mls/hr IV ONETIME ONE Stop: 10/31/16 14:29 Last Admin: 10/31/16 13:24 Dose: 100 mls/hr Levofloxacin/Dextrose 750 mg/ (Premix) 150 mls @ 100 mls/hr IV Q24H [facility] Last Admin: 11/02/16 13:30 Dose: 100 mls/hr Potassium Chloride/Sodium Chloride (Normal Saline With 20 Meq Kcl) 1,000 mls @ 125 mls/hr IV ASDIRECTED [facility] Last Admin: 11/04/16 08:04 Dose: 125 mls/hr Piperacillin Sod/Tazobactam (Sod 3.375 gm/ Sodium Chloride) 50 mls @ 100 mls/ hr IV Q6H [facility] Last Admin: 11/03/16 07:42 Dose: 100 mls/hr Vancomycin HCl 2 gm/ Sodium (Chloride) 500 mls @ 150 mls/hr IV Q12H [facility] Vancomycin HCl 1 gm/ Sodium (Chloride) 250 mls @ 166 mls/hr IV Q1H [facility] Stop: 11/01/16 05:59 Last Admin: 11/01/16 07:19 Dose: 166 mls/hr Vancomycin HCl 2 gm/ Sodium (Chloride) 500 mls @ 150 mls/hr IV Q12H [facility] Last Admin: 11/03/16 08:19 Dose: 150 mls/hr Magnesium Sulfate 2 gm/ Premix 50 mls @ 50 mls/hr IV ONETIME ONE Stop: 11/01/16 12:18 Last Admin: 11/01/16 11:58 Dose: 50 mls/hr Magnesium Sulfate 4 gm/ Premix 100 mls @ 50 mls/hr IV ONETIME ONE Stop: 11/02/16 23:31 Last Admin: 11/03/16 00:47 Dose: 50 mls/hr Nitroglycerin (Nitrostat) 0.4 mg SL Q5M PRN PRN Reason: Chest Pain Stop: 10/31/16 11:29 Potassium Chloride (Klor-Con M20) 40 meq PO ONETIME ONE Stop: 11/02/16 09:01 Last Admin: 11/02/16 09:07 Dose: 40 meq Vancomycin HCl (Pharmacy To Dose - Vancomycin) 1 dose .XX ASDIRECTED [facility] - Exam General: alert, oriented, cooperative HEENT: Pupils equal, Pupils reactive, EOMI, Mucous membr. moist/pink Lungs: Clear to auscultation, Normal respiratory effort Cardiovascular: Regular Rate, Regular Rhythm, No Murmurs Abdomen: bowel sounds present, soft, no tenderness, no distension Back Exam: Normal Inspection, Full Range of Motion Extremities: no edema, normal pulses Neurological: no new focal deficit Psy/Mental Status: alert, normal affect, normal mood - Problem List & Annotations (1) Diabetes mellitus SNOMED Code(s): 85441521 Code(s): E11.9 - TYPE 2 DIABETES MELLITUS WITHOUT COMPLICATIONS Status: Acute Current Visit: Yes Qualifiers: Diabetes mellitus type: type 2 Diabetes mellitus complication status: without complication 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 use Qualified Code(s): E11.9 - Type 2 diabetes mellitus without complications (2) Pneumonia SNOMED Code(s): 756620656 Code(s): J18.9 - PNEUMONIA, UNSPECIFIED ORGANISM Status: Acute Current Visit: Yes Qualifiers: Pneumonia type: due to unspecified organism (3) Staphylococcus aureus bacteremia SNOMED Code(s): 412141465 Code(s): R78.81 - BACTEREMIA Status: Acute Current Visit: Yes - Problem List Review Problem List Initiated/Reviewed/Updated: Yes - My Orders Last 24 Hours: My Active Orders 11/05/16 09:28 Communication Order [RC] PRN 11/05/16 11:24 Communication Order [RC] PRN 11/05/16 11:28 PICC Line Insertion [CR] Routine - Plan Plan:: will check a HgA1C levaquin ekg monitor blood sugars K supplementation gentle fluid hydration. Yoandy Godfrey MD 11/01/2016 mg replacement/ recheck in am diabetes teaching continue broad spectrum antibiotics/ antibiotic coverage broadened last pm sliding scale insulin/ may consider metformin at discharge. Yoandy Godfrey MD 11/02/2016 will seek infectious disease phone consultation regarding staphylococcus aureus bacteremia. start meformin transthoracic echo ordered. since he also has a bilateral pneumonia will continue the same broad spectrum antibiotics for now. Yoandy Godfrey MD 11/03/2016 Will change to cefazolin 2 g IV q 8 hours. TT echo results pending. Slightly febrile last night. Repeat blood cultures pending. continue with in hospital treatment. He will need intravenous cefazolin for at least 14 days after repeat blood culture negative. Thus earliest possible discharge would be Saturday or Saturday. Yoandy Godfrey MD 11/04/2016 blood culture from two days ago growing gram positive cocci in clusters. continue cefazolin echo results pending plan repeat telephone consultation with infectious disease ( Dr Berrios ) tomorrow. I advised that he might need EMNA Yoandy Godfrey MD 11.05.2016 1. MSSA bacteremia: Dr. Godfrey Spoke with Dr. Berrios' this morning regarding further testing and need for ENMA if BC remain persistently positive. X2 sets of BC positive. Third set drawn on 11/[address] Berrios recommends ENMA, but this can be done as outpatient. Will arrange this. Dr. Godfrey also updated PCP on treatment plan and follow up. Continue with Cefazolin 2 g Q[address] IV[address] PICC line today. TTE revealed EF 55-60%, no vegetations noted and no regional wall abnormalities. 2. PNA: Continue Cefazoin as above. 3. New onest DM: Continue Metformin. Monitor BS, these have been stable. 4. HTN: Continue Losartan/HCTZ, stable. VTE: SCD Dispo: Pending BC results, likely 2-3 days.
[2016-11-05] MEDS: Potassium Chloride 20 MEQ Tab.ER PO SCH (20:54)
[2016-11-06] MEDS: ceFAZolin 2 GM in Premix Bag 1 BAG IV SCH (04:14)
[2016-11-06] MEDS: Albuterol/Ipratropium 3.0-0.5 MG/3 ML Neb Soln NEB SCH ×2 (05:48→11:13)
[2016-11-06] MEDS: Insulin Aspart 100 Units/ML 3 ML Pen SUBCUT SCH ×2 (07:41→11:57)
[2016-11-06] MEDS: Hydrochlorothiazide/Losartan 12.5-50 mg Tab PO SCH (08:13)
[2016-11-06] MEDS: metFORMIN 500 MG Tab PO SCH (08:13)
--- NOTE | 2016-11-06 08:32 | CR ---
EXAMINATION: Fluoro and ultrasound guided left-sided PICC line placement. HISTORY: Long-term antibiotics. TECHNIQUE/FINDINGS: After written informed consent was obtained from the patient using ultrasound a nd Fluoro guidance under aseptic conditions utilizing 1% lidocaine as local anesthesia left basilic vein was accessed and 5 [place] dual-lumen PICC catheter was deployed with its tip in the distal supe rior vena cava. The catheter flushes and withdraws blood well. The catheter is flushed with the dil uted heparin. The catheter secured well. IMPRESSION: Successful Fluoro and ultrasound guided left PICC line placement.
--- NOTE | 2016-11-06 08:32 | CR ---
EXAMINATION: Fluoro and ultrasound guided left-sided PICC line placement. HISTORY: Long-term antibiotics. TECHNIQUE/FINDINGS: After written informed consent was obtained from the patient using ultrasound a nd Fluoro guidance under aseptic conditions utilizing 1% lidocaine as local anesthesia left basilic vein was accessed and 5 [place] dual-lumen PICC catheter was deployed with its tip in the distal supe rior vena cava. The catheter flushes and withdraws blood well. The catheter is flushed with the dil uted heparin. The catheter secured well. IMPRESSION: Successful Fluoro and ultrasound guided left PICC line placement.
--- NOTE | 2016-11-06 11:32 | ECHO ---
EXAM DATE: 10/31/16 PATIENT'S AGE: 56 The echocardiogram report can be seen in this patient's EMR (Electronic Medical Record) in the Reports section. [facility]
--- NOTE | 2016-11-06 11:50 | PCM.DCSUM1 ---
Discharge Summary - Hospital Course Brief History: This 56 year old males with pmh of HTN presented to the ER 2016 with body aches, cough and fatigue. He was recently started on Losartan for hypertension. His dose was adjusted because of resultant hypotension. He reported chest pain that is central sternal and worse with coughing or moving in certain positions. He was uncertain if he had a fever. In the ED leukocytosis noted, 14,610, D dimer 1.17, Na 130, K+3.1 BUN 21, Cr 1.6, troponin negative, CXR revealed bibasilar atelectasis vs infiltrate. NM VQ scan , showed low probability for pulmonary emboli. He was admitted with pneumonia. BC obtained. Dr. 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[place] [facility] use Qualified Code(s): E11.9 - Type 2 diabetes mellitus without complications (2) Pneumonia SNOMED Code(s): 525716506 ICD Code: J18.9 - PNEUMONIA, UNSPECIFIED ORGANISM Status: Acute Current Visit: Yes Qualifiers: Pneumonia type: due to unspecified organism (3) Staphylococcus aureus bacteremia SNOMED Code(s): 461877725 ICD Code: R78.81 - BACTEREMIA Status: Acute Current Visit: Yes - Patient Summary/Data Consults: Consultations 11/01/16 11:[address] [Consult to Diabetic Nurse Specialist] [CONS] Routine - Patient Instructions Diet: Diabetic Diet Activity: No Strenuous Activities Showering/Bathing: May Shower Notify Provider of: Fever, Increased Pain, Swelling and Redness, Drainage, Nausea and/or Vomiting Other/Special Instructions: Return to Infusion Center or Hospital for antibiotic infusions at 6:00 am, 2:00 pm and 10:00 pm daily for 14 days, last dose would be 11/18/2016 at 10:00 pm. May need longer pending results of transesophageal ECHO in [place]. Dr Cummings will follow up on this. - Discharge Plan Prescriptions/Med Rec: Blood Sugar Diagnostic [Blood Glucose Test Strip] 1 each MC BID #1 box Lancets 1 each MC BID #1 box ceFAZolin [Ancef] 2 gm IV Q8H #37 bag metFORMIN HCl [Metformin HCl] 1,000 mg PO BID #60 tablet Home Medications: Home Meds Losartan/Hydrochlorothiazide [Losartan-HCTZ 100-25 MG] 1 each PO DAILY 10/31/16 [History] Blood Sugar Diagnostic [Blood Glucose Test Strip] 1 each MC BID #1 box 11/06/16 [Rx] Lancets 1 each MC BID #1 box 11/06/16 [Rx] ceFAZolin [Ancef] 2 gm IV Q8H #37 bag 11/06/16 [Rx] metFORMIN HCl [Metformin HCl] 1,000 mg PO BID #60 tablet 11/06/16 [Rx] Patient Handouts: Cefazolin injection, Metformin extended-release tablets, PICC Home Guide, Type 2 Diabetes Mellitus, Adult, [id number], Community- Acquired Pneumonia, Adult, [id number] Referrals: Mita French MD [Ordering Only Provider] - 11/13/16 9:15 am Yaniv Cummings MD [Physician] - 11/12/16 2:45 pm - Discharge Summary/Plan Comment DC Time >30 min.: No Discharge Summary/Plan Comment: Discharge diagnoses: MSSA bacteremia Community acquired Pneumonia New onset DM type 2 HTN Romario was admitted and treated with Levaquin initially for community acquired pneumonia. BC returned quickly positive with gram positive cocci in all four bottles, he was then placed on broad spectrum antibiotics, Zosyn Levaquin and Vancomycin. He continued to improve. BC grew out MSSA, Dr. Godfrey contacted infectious disease MD, Dr Berrios in [place] regarding BC results. She recommended treating with Cefazolin 2 gm IV Q8hr and obtaining an ECHO. BC were redrawn again on 11/02, which returned positive again and grew out 1/4 bottles MSSA. Another BC set was obtained on 11/04, which have since been negative x [address] Godfrey did speak with Dr Holley's again regarding persistent positive BC, she recommended to keep him until cultures clear and she then would recommend outpatient ENMA to rule out endocarditis. TTE here, did not reveal any vegetations and no abnormalities. PCP, Dr. Cummings was notified of plan and is in agreement to follow up with patient. PICC line was placed 11/05. Will discharge home today, BC negative x 2 days. I will send home with Cefazolin 2 gm IV Q 8hrs for a total of 14 days since cleared cultures. Last day of antibiotics would be 11/18 at 10 pm. This may change pending ENMA results, which will be sent to Dr. Cummings to follow up with. During his stay, he was newly diagnosed with DM type 2, A1c was noted to be 10.0. He was started on Metformin 1,000 BID with meals. He has tolerated this well and BS have been controlled 120 and under. He did meet with DM educator and will follow up with PCP regarding this. He is to continue Losartan/HCTZ. Dr. Cummings aware and significant other at bedside is aware and in agreement of treatment plan. Patient very eager for discharge today. - General Info Date of Service: 11/06/16 Admission Dx/Problem (Free Text: Admission Diagnosis/Problem Admission Diagnosis/Problem Pneumonia Subjective Update: Feeling better today,continues to be eager for discharge. Denies chest pain or SOB. No complaints. Functional Status: Reports: pain controlled, tolerating diet, ambulating, urinating - Review of Systems General: Reports: No Symptoms. Denies: Fever HEENT: Reports: no symptoms. Denies: sinus congestion, sore throat Pulmonary: Reports: no symptoms. Denies: shortness of breath, cough, sputum Cardiovascular: Reports: No Symptoms. Denies: Chest Pain, Palpitations, Edema Gastrointestinal: Reports: No symptoms. Denies: Abdominal pain, Flatus, Nausea , Vomiting Genitourinary: Reports: no symptoms Musculoskeletal: Reports: no symptoms Skin: Reports: no symptoms Neurological: Reports: No Symptoms Psychiatric: Reports: no symptoms - Patient Data Vitals - Most Recent: Last Vital Signs Temp 98.7 F 11/06/16 08:00 Pulse 97 11/06/16 08:00 Resp 20 11/06/16 08:00 BP 152/92 H 11/06/16 08:00 Pulse Ox 91 L 11/06/16 08:00 Weight - Most Recent: 129.274 kg I&O - Last 24 hours: Intake & Output 11/05/16 11/06/16 11/06/16 22:59 06:59 14:59 Intake Total 670 350 Output Total 700 975 Balance -30 -625 Lab Results - Last 24 hrs: Laboratory Results - last 24 hr 11/05/16 11/05/16 11/06/16 Range/Units 17:05 20:25 06:25 POC Glucose 111 H 95 97 (60-110) mg/dL JEANE Results - Last 24 hrs: Microbiology 11/04/16 11:39 Aerobic Blood Culture - Preliminary Blood - Venous NO GROWTH AFTER 2 DAYS Anaerobic Blood Culture - Preliminary NO GROWTH AFTER 2 DAYS 11/02/16 12:10 Aerobic Blood Culture - Final Blood - Venous Staphylococcus Aureus Anaerobic Blood Culture - Preliminary NO GROWTH AFTER 3 DAYS 11/02/16 12:18 Aerobic Blood Culture - Preliminary Blood - Venous - Lab Draw NO GROWTH AFTER 3 DAYS Anaerobic Blood Culture - Preliminary NO GROWTH AFTER 3 DAYS 11/04/16 12:10 Aerobic Blood Culture - Preliminary Blood - Venous - Lab Draw NO GROWTH AFTER 1 DAY Anaerobic Blood Culture - Preliminary NO GROWTH AFTER 1 DAY Med Orders - Current: Current Medications Acetaminophen (Tylenol) 650 mg PO Q4H PRN PRN Reason: Pain (Mild 1-3)/fever Last Admin: 11/03/16 13:37 Dose: 650 mg Albuterol/Ipratropium (Duoneb 3.0-0.5 Mg/3 Ml) 3 ml NEB Q6HRRT [facility] Last Admin: 11/06/16 11:13 Dose: Not Given Bisacodyl (Dulcolax) 5 mg PO DAILY PRN PRN Reason: Constipation HCTZ/Losartan Potassium (Hyzaar 50-12.5 Mg) 1 tab PO DAILY [facility] Last Admin: 11/06/16 08:13 Dose: 1 tab Cefazolin Sodium/Dextrose 2 gm (/ Premix) 50 mls @ 100 mls/hr IV Q8H [facility] Insulin Aspart (Novolog) 0 unit SUBCUT ACBED [facility] PRN Reason: Protocol Last Admin: 11/06/16 07:41 Dose: Not Given Metformin HCl (Glucophage) 1,000 mg PO BIDMEALS [facility] Last Admin: 11/06/16 08:13 Dose: 1,000 mg Ondansetron HCl (Zofran Odt) 4 mg PO Q4H PRN PRN Reason: nausea, able to take PO Potassium Chloride (Klor-Con M20) 20 meq PO BEDTIME [facility] Last Admin: 11/05/16 20:54 Dose: 20 meq Sodium Chloride (Saline Flush) 10 ml FLUSH ASDIRECTED PRN PRN Reason: Keep Vein Open Sodium Chloride (Saline Flush) 2.5 ml FLUSH ASDIRECTED PRN PRN Reason: Keep Vein Open Temazepam (Restoril) 15 mg PO BEDTIME PRN PRN Reason: Sleep Discontinued Medications Aspirin (Aspirin) 324 mg PO ONETIME ONE Stop: 10/31/16 11:19 Last Admin: 10/31/16 11:35 Dose: 324 mg HCTZ/Losartan Potassium (Hyzaar 50-12.5 Mg) 2 tab PO DAILY [facility] Levofloxacin/Dextrose 750 mg/ (Premix) 150 mls @ 100 mls/hr IV ONETIME ONE Stop: 10/31/16 14:29 Last Admin: 10/31/16 13:24 Dose: 100 mls/hr Levofloxacin/Dextrose 750 mg/ (Premix) 150 mls @ 100 mls/hr IV Q24H [facility] Last Admin: 11/02/16 13:30 Dose: 100 mls/hr Potassium Chloride/Sodium Chloride (Normal Saline With 20 Meq Kcl) 1,000 mls @ 125 mls/hr IV ASDIRECTED [facility] Last Admin: 11/04/16 08:04 Dose: 125 mls/hr Piperacillin Sod/Tazobactam (Sod 3.375 gm/ Sodium Chloride) 50 mls @ 100 mls/ hr IV Q6H [facility] Last Admin: 11/03/16 07:42 Dose: 100 mls/hr Vancomycin HCl 2 gm/ Sodium (Chloride) 500 mls @ 150 mls/hr IV Q12H [facility] Vancomycin HCl 1 gm/ Sodium (Chloride) 250 mls @ 166 mls/hr IV Q1H [facility] Stop: 11/01/16 05:59 Last Admin: 11/01/16 07:19 Dose: 166 mls/hr Vancomycin HCl 2 gm/ Sodium (Chloride) 500 mls @ 150 mls/hr IV Q12H [facility] Last Admin: 11/03/16 08:19 Dose: 150 mls/hr Magnesium Sulfate 2 gm/ Premix 50 mls @ 50 mls/hr IV ONETIME ONE Stop: 11/01/16 12:18 Last Admin: 11/01/16 11:58 Dose: 50 mls/hr Magnesium Sulfate 4 gm/ Premix 100 mls @ 50 mls/hr IV ONETIME ONE Stop: 11/02/16 23:31 Last Admin: 11/03/16 00:47 Dose: 50 mls/hr Cefazolin Sodium/Dextrose 2 gm (/ Premix) 50 mls @ 100 mls/hr IV Q8H [facility] Last Admin: 11/06/16 04:14 Dose: 100 mls/hr Nitroglycerin (Nitrostat) 0.4 mg SL Q5M PRN PRN Reason: Chest Pain Stop: 10/31/16 11:29 Potassium Chloride (Klor-Con M20) 40 meq PO ONETIME ONE Stop: 11/02/16 09:01 Last Admin: 11/02/16 09:07 Dose: 40 meq Vancomycin HCl (Pharmacy To Dose - Vancomycin) 1 dose .XX ASDIRECTED [facility] - Exam Quality Assessment: Denies: supplemental oxygen General: Reports: alert, oriented, cooperative HEENT: Reports: Pupils equal, Pupils reactive, EOMI, Mucous membr. moist/pink Neck: Reports: supple Lungs: Reports: Clear to auscultation, Normal respiratory effort Cardiovascular: Reports: Regular Rate, Regular Rhythm, No Murmurs. Denies: Irregular Rhythm Abdomen: Reports: bowel sounds present, soft, no tenderness, no distension Extremities: Reports: no edema, normal pulses Neurological: Reports: no new focal deficit Psy/Mental Status: Reports: alert, normal affect, normal mood *Q Meaningful Use (DIS) - VTE *Q VTE Criteria *Q: - Stroke *Q Stroke Criteria *Q: - AMI *Q AMI Criteria *Q:
[2016-11-06 12:39] VITALS: BP 142/92
[2016-11-06] MEDS ORDERED: ceFAZolin 2 GM in Premix Bag 1 BAG IV SCH (14:00)
== END 2016-11-06 14:00 | disposition home or self-care (01) | DRG 867 ==
LOC: MW.ED 10:52 → MW.MS 14:13
PROVIDERS: ADMIT Family Medicine; ATTEND Family Medicine
PROC: 02HV33Z Insertion of Infusion Device into Superior Vena Cava, Percutaneous Approach (ICD-10-PCS; principal; 2016-11-05)
DX: A49.01 Methicillin susceptible Staphylococcus aureus infection, unspecified site (principal); J18.9 Pneumonia, unspecified organism; R09.02 Hypoxemia; E87.8 Other disorders of electrolyte and fluid balance, not elsewhere classified; R07.9 Chest pain, unspecified; R79.89 Other specified abnormal findings of blood chemistry; E11.9 Type 2 diabetes mellitus without complications; E83.42 Hypomagnesemia; I10 Essential (primary) hypertension; Z79.899 Other long term (current) drug therapy
CPT/HCPCS: 36415; 36569; 71010; 71010-26; 76937; 76937-26; 77001; 77001-26; 78582; 78582-26; 80048; 80053; 80061; 80202; 82962; 83036; 83735; 83880; 84100; 84484; 85025; 85379; 87040; 87077; 87186; 93005; 93306; 94640; 96365; 99285; 99285-25; A9270-GY; A9540; A9567; J0690; J1815-GY; J1956; J2543; J3370; J3475; J3480; J7040; J7050

== ENCOUNTER 2022-10-31 17:06 | Emergency (ER) | payer OTHER ==
[2022-10-31] MEDS ORDERED: Lactated Ringers 1,000 ML IV SCH (17:15)
[2022-10-31 17:59] LABS: BASOPHILS PERCENT AUTO 0.5 % (0.0-1.5); EOSINOPHILS ABSOLUTE AUTO 0.1 K/uL (0.0-0.7); EOSINOPHILS PERCENT AUTO 0.8 % (0.0-7.0); HEMATOCRIT 39.8 % (38.0-50.0); HEMOGLOBIN 14.4 g/dL (13.0-17.0); LYMPHOCYTES ABSOLUTE AUTO 1.1 K/uL (0.6-2.4); LYMPHOCYTES PERCENT AUTO 17.7 % (16.0-40.0); MEAN CORPUSCULAR HEMOGLOBIN 37.6 pg (27.0-32.0); MEAN CORPUSCULAR HGB CONC 36.2 g/dL (31.0-37.0); MEAN CORPUSCULAR VOLUME 103.9 fL (80.0-98.0); MONOCYTES ABSOLUTE AUTO 0.5 K/uL (0.0-0.8); MONOCYTES PERCENT AUTO 8.4 % (0.0-15.0); NEUTROPHILS ABSOLUTE AUTO 4.5 K/uL (1.4-5.7); NEUTROPHILS PERCENT AUTO 72.6 % (48.0-80.0); PLATELET COUNT,PLT 137 K/uL (150-400); RED BLOOD CELL COUNT 3.83 M/uL (4.50-5.90); WHITE BLOOD CELL COUNT,WBC 6.21 K/uL (4.0-11.0)
[2022-10-31 18:32] LABS: INR 1.24 (0.86-1.11); PTT,PARTIAL THROMBOPLSTIN TIME 25.4 SEC (23.9-30.7)
[2022-10-31 18:36] LABS: CORONAVIRUS COVID-19 NAA NEGATIVE (NEGATIVE); INFLUENZA A NAA NEGATIVE (NEGATIVE); INFLUENZA B NAA NEGATIVE (NEGATIVE)
[2022-10-31] MEDS ORDERED: Magnesium Sulfate/Water 4 GM in Premix Bag 1 BAG IV STA (18:37)
[2022-10-31 18:42] LABS: A/G RATIO 0.8 (0.9-1.6); ALBUMIN 3.4 g/dL (3.4-5.0); BILIRUBIN TOTAL 2.3 mg/dL (0.2-1.0); CALCIUM 9.9 mg/dL (8.5-10.1); CARBON DIOXIDE,CO2 25.1 mmol/L (21.0-32.0); CREATININE 1.5 mg/dL (0.8-1.3); EST CRCL DRUG DOSING (CG) 57.48 mL/min; POTASSIUM,K 4.1 mmol/L (3.5-5.1); PROTEIN TOTAL,TP 7.8 g/dL (6.4-8.2)
[2022-10-31] MEDS ORDERED: Diltiazem IR 30 MG Tab PO STA (19:07)
[2022-10-31 19:29] LABS: APPEARANCE,URINE CLEAR; COLOR,URINE YELLOW; GLUCOSE,URINE NEGATIVE (NEGATIVE); KETONES,URINE 15 mg/dL (NEGATIVE); LEUKOCYTE ESTERASE,URINE NEGATIVE (NEGATIVE); NITRITE,URINE NEGATIVE (NEGATIVE); OCCULT BLOOD,URINE NEGATIVE (NEGATIVE); PH,URINE 5.5 (5.0-8.0); PROTEIN,URINE NEGATIVE (NEGATIVE); UROBILINOGEN,URINE 0.2 EU/dL (<2.0)
[2022-10-31 19:33] LABS: BILIRUBIN,URINE SMALL (NEGATIVE)
[2022-10-31 19:43] LABS: AMPHETAMINES SCREEN, URINE NEGATIVE (CUTOFF=500); BARBITURATE SCREEN,URINE NEGATIVE (CUTOFF=200); BENZODIAZEPINES SCREEN,URINE NEGATIVE (CUTOFF=150); BUPRENORPHINE SCREEN,URINE NEGATIVE (CUTOFF=10); METHADONE SCREEN, URINE NEGATIVE (CUTOFF=200); METHAMPHETAMINES SCREEN, URINE NEGATIVE (CUTOFF=500); OXYCODONE SCREEN,URINE NEGATIVE (CUT0FF=100); PCP SCREEN,URINE NEGATIVE (CUTOFF=25); PROPOXYPHENE SCREEN,URINE NEGATIVE (CUTOFF=300); THC SCREEN,URINE 20 NG/ML NEGATIVE (CUTOFF=50)
[2022-10-31] MEDS ORDERED: Rivaroxaban 15 MG Tab PO STA (20:42)
[2022-10-31] MEDS ORDERED: Rivaroxaban 15 MG Tab ONE (21:31)
[2022-10-31 21:42] VITALS: BP 142/84; PULSE 91
== END 2022-10-31 21:43 | disposition home or self-care (01) ==
LOC: MW.ED 17:06
DX: I48.91 Unspecified atrial fibrillation (principal); E83.42 Hypomagnesemia; D75.89 Other specified diseases of blood and blood-forming organs; R55 Syncope and collapse; R74.01 Elevation of levels of liver transaminase levels; I12.9 Hypertensive chronic kidney disease with stage 1 through stage 4 chronic kidney disease, or unspecified chronic kidney disease; N18.31 Chronic kidney disease, stage 3a; Z79.899 Other long term (current) drug therapy; Z79.01 Long term (current) use of anticoagulants; Z20.822 Contact with and (suspected) exposure to COVID-19
CPT/HCPCS: 0240U; 36415; 71045; 80053; 80305; 81003; 83690; 83735; 83880; 84443; 84484; 85025; 85610; 85730; 93005; 96361; 96365; 96366; 99284; A9270; J3475; J7120; 93010; 99285

== ENCOUNTER 2024-01-13 08:51 | Day surgery (SDC) | payer OTHER ==
[2024-01-13] MEDS: Lactated Ringers 1,000 ML IV SCH (09:36)
[2024-01-13] MEDS ORDERED: propofoL 50 ML ONE (10:28)
[2024-01-13] MEDS ORDERED: Propofol 200 MG/20 ML SDV ONE ×2 (10:51→11:09)
[2024-01-13] MEDS ORDERED: Lactated Ringers 1,000 ML IV SCH (11:30)
[2024-01-13 11:50] VITALS: BP 116/83; PULSE 83
== END 2024-01-13 11:55 | disposition home or self-care (01) ==
LOC: MW.SDS 08:51
PROVIDERS: ATTEND Surgery
DX: Z12.11 Encounter for screening for malignant neoplasm of colon (principal); D12.2 Benign neoplasm of ascending colon; K57.30 Diverticulosis of large intestine without perforation or abscess without bleeding; I11.9 Hypertensive heart disease without heart failure; E11.9 Type 2 diabetes mellitus without complications; I48.91 Unspecified atrial fibrillation; Z79.01 Long term (current) use of anticoagulants; Z79.84 Long term (current) use of oral hypoglycemic drugs; Z79.899 Other long term (current) drug therapy
CPT/HCPCS: 45380; J2704; J7120; 00811